=== PATIENT | female | born 1945 | race Caucasian/White ===

== ENCOUNTER 2018-05-18 00:29 | Emergency (ER) | payer OTHER ==
--- OUTSIDE RECORDS SUMMARY | 2018-05-18 00:31 | XMS REPORT ---
:1945 Author Organization [facility] Address [address] [place] [address] [address]. [address] [place] [address] Care Team Providers Name Role Phone IRENE SEGOVIA Unavailable Unavailable Problems This patient has no known problems. Allergies, Adverse Reactions, Alerts This patient has no known allergies or adverse reactions. Medications This patient has no known medications. Results Test Description Test Time Test Comments Text Results Atomic Results Result Comments POCT-GLUCOSE METER 2016-11-10 12:36:00 Test Item Value Reference Range Comments POC-GLUCOSE METER (BEAKER) (test 115 mg/dL 70-110 TESTED AT [address] xrut=7449) [facility] [address] POCT-GLUCOSE [id number] 08:07:00 Test Item Value Reference Range Comments POC-GLUCOSE METER (BEAKER) 131 mg/dL 70-110 TESTED AT [address] (test qifg=1000) [facility] [id number] POCT-GLUCOSE [id number] 19:50:00 Test Item Value Reference Range Comments POC-GLUCOSE METER (BEAKER) 134 mg/dL 70-110 TESTED AT [address] (test libz=3872) [facility] [address] POCT-GLUCOSE [id number] 17:02:00 Test Item Value Reference Range Comments POC-GLUCOSE METER (BEAKER) 137 mg/dL 70-110 TESTED AT [address] (test qfin=5411) [facility] [address] POCT-GLUCOSE [id number] 12:00:00 Test Item Value Reference Range Comments POC-GLUCOSE METER (BEAKER) 109 mg/dL 70-110 TESTED AT [address] (test pwuv=3732) [facility] [address] SEDIMENTATION [id number] 10:11:00 Test Item Value Reference Range Comments SEDIMENTATION RATE, ERYTHROCYTE (BEAKER) (test 19 mm/HR 0-40 dlga=670) HEMOGLOBIN [id number] 09:54:00 Test Item Value Reference Range Comments HEMOGLOBIN A1C (BEAKER) (test xnox=427) 6.6 % 4.3-6.1 POCT-GLUCOSE [id number] 08:44:00 Test Item Value Reference Range Comments POC-GLUCOSE METER (BEAKER) 93 mg/dL 70-110 TESTED AT [address] (test wyeu=0682) [place] [id number] POCT-GLUCOSE [id number] 06:19:00 Test Item Value Reference Range Comments POC-GLUCOSE METER (BEAKER) 104 mg/dL 70-110 TESTED AT [address] (test vmct=8637) [place] [id number] 05:48:00 Test Item Value Reference Range Comments THYROID STIMULATING HORMONE (BEAKER) (test 1.61 uIU/mL 0.35-4.94 gzvb=603) VITAMIN [id number] 05:48:00 Test Item Value Reference Range Comments VITAMIN B12 (BEAKER) (test vtiv=288) 537 pg/mL 213-816 LIPID [id number] 05:27:00 Test Item Value Reference Range Comments TRIGLYCERIDES (BEAKER) (test pehi=574) 69 mg/dL CHOLESTEROL (BEAKER) (test dxcm=844) 104 mg/dL HDL CHOLESTEROL (BEAKER) (test hurc=913) 44 mg/dL LDL CHOLESTEROL CALCULATED (BEAKER) (test 46 mg/dL hlia=641) Triglyceride Reference Range: Low Risk <150 Borderline 150- 199 High Risk 200-499 Very High Risk >=500Cholesterol Reference Range: Low Risk <200 Borderline 200-239 High Risk > 240HDL Cholesterol Reference Range: Low Risk >=60 High Risk <40LDL Cholesterol Reference Range: Optimal <100 Near Optimal 100-129 Borderline 130-159 High 160-189 Very High >=190 FastingBASIC METABOLIC [id number] 05:27:00 Test Item Value Reference Range Comments SODIUM (BEAKER) (test 140 meq/L 136-145 wack=461) POTASSIUM (BEAKER) (test 4.0 meq/L 3.5-5.1 haro=119) CHLORIDE (BEAKER) (test 108 meq/L 98-107 pklt=307) CO2 (BEAKER) (test 23 meq/L 22-29 xprl=692) BLOOD UREA NITROGEN 15 mg/dL 7-21 (BEAKER) (test pyzr=630) CREATININE (BEAKER) (test 0.71 mg/dL 0.57-1.25 hoxw=778) GLUCOSE RANDOM (BEAKER) 131 mg/dL 70-105 (test aapn=698) CALCIUM (BEAKER) (test 8.8 mg/dL 8.4-10.2 bauz=956) EGFR (BEAKER) (test 82 mL/min/1.73 sq m ESTIMATED GFR IS NOT jvgz=6029) ACCURATE CREATININE CLEARANCE IN PREDICTING GLOMERULAR FILTRATION RATE. ESTIMATED GFR IS NOT APPLICABLE FOR DIALYSIS PATIENTS. FastingCBC W/PLT COUNT & AUTO [id number] 05:16:00 Test Item Value Reference Range Comments WHITE BLOOD CELL COUNT (BEAKER) (test igat=222) 7.1 K/ L 4.0-10.0 RED BLOOD CELL COUNT (BEAKER) (test pozl=339) 3.96 M/ L 4.00-5.00 HEMOGLOBIN (BEAKER) (test rqxg=693) 11.1 GM/DL 12.0-15.0 HEMATOCRIT (BEAKER) (test rqbh=038) 33.7 % 36.0-45.0 MEAN CORPUSCULAR VOLUME (BEAKER) (test hnxw=426) 85.2 fL 82.0-99.0 MEAN CORPUSCULAR HEMOGLOBIN (BEAKER) (test 28.0 pg 27.0-33.0 tcdt=281) MEAN CORPUSCULAR HEMOGLOBIN CONC (BEAKER) (test 32.9 GM/DL 32.0-36.0 wyzb=295) RED CELL DISTRIBUTION WIDTH (BEAKER) (test 14.6 % 10.3-14.2 swfw=364) PLATELET COUNT (BEAKER) (test rtew=844) 221 K/CU MM 150-430 MEAN PLATELET VOLUME (BEAKER) (test hkqj=012) 8.3 fL 6.5-10.5 NUCLEATED RED BLOOD CELLS (BEAKER) (test 0 /100 WBC 0-0 dtjd=678) NEUTROPHILS RELATIVE PERCENT (BEAKER) (test 67 % kqsf=577) LYMPHOCYTES RELATIVE PERCENT (BEAKER) (test 23 % anjg=455) MONOCYTES RELATIVE PERCENT (BEAKER) (test 9 % ynjc=967) EOSINOPHILS RELATIVE PERCENT (BEAKER) (test 2 % cnvq=387) BASOPHILS RELATIVE PERCENT (BEAKER) (test 1 % jvvy=285) NEUTROPHILS ABSOLUTE COUNT (BEAKER) (test 4.73 K/ L 1.80-8.00 ysxu=799) LYMPHOCYTES ABSOLUTE COUNT (BEAKER) (test 1.60 K/ L 1.48-4.50 mqqw=985) MONOCYTES ABSOLUTE COUNT (BEAKER) (test 0.62 K/ L 0.00-1.30 alrw=346) EOSINOPHILS ABSOLUTE COUNT (BEAKER) (test 0.11 K/ L 0.00-0.50 fhfp=511) BASOPHILS ABSOLUTE COUNT (BEAKER) (test 0.04 K/ L 0.00-0.20 hwzp=665) 0.00
--- OUTSIDE RECORDS SUMMARY | 2018-05-18 00:31 | XMS REPORT | Clinical Summary ---
:1945 Author Organization [facility] Address [address] [place] [address] Phone Care Team Providers Name Role Phone Unavailable Primary Care Provider Unavailable Allergies No Known Allergies Current Medications Prescription Sig. Disp. Refills Start Date End Date Status metFORMIN (GLUCOPHAGE) Take 1,000 mg by Active 1000 MG tablet mouth 2 (two) times daily with breakfast and dinner. losartan (COZAAR) 25 MG Take 25 mg by mouth Active tablet daily. levothyroxine Take 75 mcg by mouth Active (SYNTHROID, LEVOTHROID) Every morning on an 75 MCG tablet empty stomach. cholecalciferol, vitamin Take 1,000 Units by Active D3, 1,000 unit capsule mouth daily. Active Problems Problem Noted Date CVA (cerebral vascular accident) (HCC) 2016 Social History Tobacco Use Types Packs/Day Years Used Date Never Smoker Sex Assigned at Date Recorded Not on file Last Filed Vital Signs Not on file Plan of Treatment Not on file Results Not on fileafter 05/17/2017
[2018-05-18] MEDS ORDERED: ASPIRIN 81 MG CHEWABLE TABLET ONE (01:11)
[2018-05-18] MEDS ORDERED: NA CHLORIDE 0.9% 1,000 ML ONE (01:12)
[2018-05-18 01:55] LABS: Protime INR 0.98
[2018-05-18 01:56] LABS: Absolute Lymphocytes (CBC) 1.8 K/uL (0.7-4.9); Absolute Monocytes 0.7 K/uL (0.1-1.3); Absolute Neutrophil 5.7 K/uL (1.8-8.0); Basophils % 0.8 % (0-1.3); Eosinophils % 1.6 % (0-4.4); Hematocrit 33.4 % (36.0-45.0); Lymphocytes % 21.6 % (15.3-44.8); MCH 27.8 pg (27.0-35.0); MCV 82.5 fL (80-100); MPV 9.2 fL (7.6-11.3); RBC Red Blood Cell Count 4.04 M/uL (3.86-4.86)
[2018-05-18 02:13] LABS: ALT/SGPT 30 U/L (12-78); AST/SGOT 22 U/L (15-37); Albumin 3.6 g/dL (3.4-5.0); Alkaline Phosphatase 71 U/L (45-117); BUN Blood Urea Nitrogen 12 mg/dL (7-18); Bicarbonate 24 mmol/L (21-32); Bilirubin Direct 0.1 mg/dL (0-0.2); Bilirubin Total 0.4 mg/dL (0.2-1.0); Glucose Level 117 mg/dL (74-106); Magnesium 2.1 mg/dL (1.8-2.4); NT PRO-BNP 143 pg/mL (<125); Potassium 3.6 mmol/L (3.5-5.1); Sodium Level 141 mmol/L (136-145); Troponin (Emerg Dept Use Only) < 0.02 ng/mL (0.0-0.045)
--- NOTE | 2018-05-18 02:27 | ER ---
Nurse's Notes [facility] Name: Erin Robledo Age: 72 yrs Sex: Female : 1945 Arrival Date: 05/18/2018 Time: 00:30 Bed 7 Private MD: Diagnosis: Pain left upper extremity ( Resolved ) Presentation: 05/18 00:49 Presenting complaint: Patient states: Left arm pain that began about 40 minutes ago; lp1 Denies any other symptoms, full ROM intact. Transition of care: patient was not received from another setting of care. Onset of symptoms was May 18, 2018 at 00:00. Risk Assessment: Do you want to hurt yourself or someone else? Patient reports no desire to harm self or others. Initial Sepsis Screen: Does the patient meet any 2 criteria? No. Patient's initial sepsis screen is negative. Does the patient have a suspected source of infection? No. Patient's initial sepsis screen is negative. Care prior to arrival: None. 00:49 Method Of Arrival: Ambulatory lp1 00:49 Acuity: COLTON 3 lp1 Historical: - Allergies: 00:52 No Known Allergies; lp1 - Home Meds: 00:52 metformin 1,000 mg Oral tab 1 tab 2 times per day [Active]; Synthroid 75 mcg Oral tab 1 lp1 tab once daily [Active]; losartan 25 mg Oral tab 1 tab once daily [Active]; atorvastatin 80 mg Oral tab 1 tab once daily [Active]; Caltrate 600 + D 600 mg (1,500 mg)-800 unit Oral chew twice a day [Active]; Vitamin D3 oral oral [Active]; Vitamin B-12 1,000 mcg Oral tab daily [Active]; magnesium oxide 250 mg Oral tab daily [Active]; zaleplon 5 mg oral cap nightly [Active]; - PMHx: 00:52 Anemia; Diabetes - NIDDM; High Cholesterol; Hypertension; Hypothyroidism; TIA; lp1 - PSHx: 00:52 ; Cholecystectomy; lp1 - Immunization history:: Adult Immunizations up to date. - Social history:: Smoking status: Patient/guardian denies using tobacco. - Ebola Screening: : No symptoms or risks identified at this time. Screenin:00 Abuse screen: Denies threats or abuse. Denies injuries from another. Nutritional aa1 screening: No deficits noted. Tuberculosis screening: No symptoms or risk factors identified. Fall Risk None identified. Assessment: 01:00 General: Appears in no apparent distress. comfortable, Behavior is calm, cooperative, aa1 appropriate for age. Pain: Complains of pain in left arm Quality of pain is described as aching, Pain began 1 hour ago. Is continuous. Neuro: Level of Consciousness is awake, alert, obeys commands, Oriented to person, place, time, situation, Academic Affairs Director are equal bilaterally Moves all extremities. Full function. Cardiovascular: Denies chest pain, palpitations, shortness of breath, Heart tones S1 S2 present Rhythm is regular. Respiratory: Airway is patent Respiratory effort is even, unlabored, Respiratory pattern is regular, symmetrical. GI: No signs and/or symptoms were reported involving the gastrointestinal system. : No signs and/or symptoms were reported regarding the genitourinary system. EENT: No signs and/or symptoms were reported regarding the EENT system. Derm: Skin is intact, is healthy with good turgor, Skin is pink, warm \T\ dry. Musculoskeletal: Circulation, motion, and sensation intact. Capillary refill < 3 seconds, Range of motion: intact in all extremities. 02:50 Reassessment: Patient appears in no apparent distress at this time. Patient is alert, aa1 oriented x 3, equal unlabored respirations, skin warm/dry/pink. Discussed d/c \T\ f/u instructions with pt \T\ daughter; denies questions or concerns at this time Patient states feeling better. Vital Signs: 00:52 BP 145 / 78; Pulse 85; Resp 18; Temp 97.9(O); Pulse Ox 99% on R/A; Weight 68.04 kg; lp1 Height 5 ft. 1 in. (154.94 cm); Pain 0/10; 02:53 BP 117 / 68; Pulse 65; Resp 16; Pulse Ox 96% on R/A; aa1 00:52 Body Mass Index 28.34 (68.04 kg, 154.94 cm) lp1 ED Course: 00:30 Patient arrived in ED. ds1 00:49 Triage completed. lp1 00:52 Arm band placed on left wrist. lp1 00:53 Patient has correct armband on for positive identification. Placed in gown. Bed in low lp1 position. Call light in reach. technology advisor on. Pulse ox on. NIBP on. 01:02 Arlet Oleary, RN is Primary Nurse. aa1 01:08 Nahum Calderon MD is Attending Physician. pkl 01:25 Inserted saline lock: 20 gauge in right antecubital area, using aseptic technique. ds4 Blood collected. 01:30 Patient moved to radiology via wheelchair. kw 01:30 X-ray completed. Patient tolerated procedure well. kw 01:30 Patient moved back from radiology. kw 01:32 XRAY Chest (1 view) In Process Unspecified. EDMS 01:32 C Spine Ap/Lat XRAY In Process Unspecified. EDMS 02:33 EKG done, by ED staff, reviewed by Nahum Calderon MD. ds4 02:45 IV discontinued, intact, bleeding controlled, No redness/swelling at site. Pressure ds4 dressing applied. 02:52 No provider procedures requiring assistance completed. aa1 Administered Medications: 01:03 CANCELLED (Duplicate Order): NS 0.9% 1000 ml IV at 125 ml/hr continuous aa1 01:11 Drug: Aspirin 162 mg Route: PO; aa1 02:10 Follow up: Response: No adverse reaction aa1 02:18 Drug: NS 0.9% 1000 ml Route: IV; Rate: 125 ml/hr; Site: right antecubital; aa1 02:50 Follow up: IV Status: Completed infusion aa1 Outcome: 02:27 Discharge ordered by . pkl 02:54 Discharged to home ambulatory, with family. aa1 02:54 Condition: good 02:54 Discharge instructions given to patient, Instructed on discharge instructions, follow up and referral plans. Demonstrated understanding of instructions, follow-up care. 02:54 Patient left the ED. aa1 Signatures: Dispatcher [employer] EDMS Arlet Oleary, RN RN aa1 Nahum Calderon MD MD pkl Sanford, Demi ds1 Mey Holliday Laura, RN RN lp1 Gabriel Cruz ds4
--- NOTE | 2018-05-18 02:27 | EDPHYS ---
Physician Documentation [facility] Name: Erin Robledo Age: 72 yrs Sex: Female : 1945 Arrival Date: 05/18/2018 Time: 00:30 Bed 7 Private MD: ED Physician Nahum Calderon HPI: 05/18 01:14 This 72 yrs old Female presents to ER via Ambulatory with complaints of Arm pkl Pain - L. 01:14 The patient or guardian complains of pain, that is acute. The complaints affect the pkl left hand and arm. Onset: The symptoms/episode began/occurred just prior to arrival, 1 hour(s) ago, and improved just prior to arrival. Associated signs and symptoms: The patient has no apparent associated signs or symptoms. Historical: - Allergies: 00:52 No Known Allergies; lp1 - Home Meds: 00:52 metformin 1,000 mg Oral tab 1 tab 2 times per day [Active]; Synthroid 75 mcg Oral tab 1 lp1 tab once daily [Active]; losartan 25 mg Oral tab 1 tab once daily [Active]; atorvastatin 80 mg Oral tab 1 tab once daily [Active]; Caltrate 600 + D 600 mg (1,500 mg)-800 unit Oral chew twice a day [Active]; Vitamin D3 oral oral [Active]; Vitamin B-12 1,000 mcg Oral tab daily [Active]; magnesium oxide 250 mg Oral tab daily [Active]; zaleplon 5 mg oral cap nightly [Active]; - PMHx: 00:52 Anemia; Diabetes - NIDDM; High Cholesterol; Hypertension; Hypothyroidism; TIA; lp1 - PSHx: 00:52 ; Cholecystectomy; lp1 - Immunization history:: Adult Immunizations up to date. - Social history:: Smoking status: Patient/guardian denies using tobacco. - Ebola Screening: : No symptoms or risks identified at this time. ROS: 01:14 Eyes: Negative for injury, pain, redness, and discharge, ENT: Negative for injury, pkl pain, and discharge, Neck: Negative for injury, pain, and swelling, Cardiovascular: Negative for chest pain, palpitations, and edema, Respiratory: Negative for shortness of breath, cough, wheezing, and pleuritic chest pain, Abdomen/GI: Negative for abdominal pain, nausea, vomiting, diarrhea, and constipation, Back: Negative for injury and pain, : Negative for injury, bleeding, discharge, and swelling, Skin: Negative for injury, rash, and discoloration, Neuro: Negative for headache, weakness, numbness, tingling, and seizure. 01:14 MS/extremity: Positive for pain, of the left hand and arm. Exam: 01:14 Head/Face: Normocephalic, atraumatic. Eyes: Pupils equal round and reactive to light, pkl extra-ocular motions intact. Lids and lashes normal. Conjunctiva and sclera are non-icteric and not injected. Cornea within normal limits. Periorbital areas with no swelling, redness, or edema. ENT: Nares patent. No nasal discharge, no septal abnormalities noted. Tympanic membranes are normal and external auditory canals are clear. Oropharynx with no redness, swelling, or masses, exudates, or evidence of obstruction, uvula midline. Mucous membranes moist. Neck: Trachea midline, no thyromegaly or masses palpated, and no cervical lymphadenopathy. Supple, full range of motion without nuchal rigidity, or vertebral point tenderness. No Meningismus. Chest/axilla: Normal chest wall appearance and motion. Nontender with no deformity. No lesions are appreciated. Cardiovascular: Regular rate and rhythm with a normal S1 and S2. No gallops, murmurs, or rubs. Normal PMI, no JVD. No pulse deficits. Respiratory: Lungs have equal breath sounds bilaterally, clear to auscultation and percussion. No rales, rhonchi or wheezes noted. No increased work of breathing, no retractions or nasal flaring. Abdomen/GI: Soft, non-tender, with normal bowel sounds. No distension or tympany. No guarding or rebound. No evidence of tenderness throughout. Back: No spinal tenderness. No costovertebral tenderness. Full range of motion. Skin: Warm, dry with normal turgor. Normal color with no rashes, no lesions, and no evidence of cellulitis. Neuro: Awake and alert, GCS 15, oriented to person, place, time, and situation. Cranial nerves II-XII grossly intact. Motor strength 5/5 in all extremities. Sensory grossly intact. Cerebellar exam normal. Normal gait. 01:14 Musculoskeletal/extremity: Extremities: grossly normal except: noted in the left hand and arm: pain has resolved. Vital Signs: 00:52 BP 145 / 78; Pulse 85; Resp 18; Temp 97.9(O); Pulse Ox 99% on R/A; Weight 68.04 kg; lp1 Height 5 ft. 1 in. (154.94 cm); Pain 0/10; 02:53 BP 117 / 68; Pulse 65; Resp 16; Pulse Ox 96% on R/A; aa1 00:52 Body Mass Index 28.34 (68.04 kg, 154.94 cm) lp1 MDM: 00:51 Patient medically screened. [facility] 02:26 Data reviewed: vital signs, nurses notes, lab test result(s), EKG, radiologic studies, pkl plain films. 02:27 Patient medically screened. pkl 05/18 00:52 Order name: Basic Metabolic Panel; Complete Time: 02:23 b[place]on 05/18 00:52 Order name: CBC with Diff; Complete Time: 02:23 b[place]on 05/18 00:52 Order name: LFT's; Complete Time: 02:23 [place]on 05/18 00:52 Order name: Magnesium; Complete Time: 02:23 [facility] 05/18 00:52 Order name: NT PRO-BNP; Complete Time: 02:23 [place] 05/18 00:52 Order name: PT-INR; Complete Time: 02:23 [facility] 05/18 00:52 Order name: Troponin (emerg Dept Use Only); Complete Time: 02:23 [facility] 05/18 00:52 Order name: XRAY Chest (1 view) [facility] 05/18 00:52 Order name: EKG; Complete Time: 00:53 [facility] 05/18 00:52 Order name: Cardiac monitoring; Complete Time: 01:03 [facility] 05/18 00:52 Order name: C Spine Ap/Lat XRAY [facility] 05/18 00:52 Order name: EKG - Nurse/Tech; Complete Time: 02:33 [facility] 05/18 00:52 Order name: IV Saline Lock; Complete Time: 01:25 [place] 05/18 00:52 Order name: Labs collected and sent; Complete Time: 01:25 [facility] 05/18 00:52 Order name: O2 Per Protocol; Complete Time: 01:03 [facility] 05/18 00:52 Order name: O2 Sat Monitoring; Complete Time: 01:03 bryon Administered Medications: 01:03 CANCELLED (Duplicate Order): NS 0.9% 1000 ml IV at 125 ml/hr continuous aa1 01:11 Drug: Aspirin 162 mg Route: PO; aa1 02:10 Follow up: Response: No adverse reaction aa1 02:18 Drug: NS 0.9% 1000 ml Route: IV; Rate: 125 ml/hr; Site: right antecubital; aa1 02:50 Follow up: IV Status: Completed infusion aa1 Disposition: 05/18/18 02:27 Discharged to Home. Impression: Pain left upper extremity ( Resolved ). - Condition is Stable. - Medication Reconciliation Form, Thank You Letter, Antibiotic Education, Prescription Opioid Use form. - Follow up: Private Physician; When: 2 - 3 days; Reason: Re-evaluation by your physician. - Problem is new. - Symptoms are resolved. Signatures: Dispatcher [employer] EDArlet Hodges RN RN aa1 Armen Mcdonnell MD MD cha Lam, Pin, MD MD pkSara Dior RN RN lp1 Corrections: (The following items were deleted from the chart) 01:03 00:52 NS 0.9% 1000 ml IV at 125 ml/hr continuous ordered. bryon aa1 02:54 02:27 05/18/2018 02:27 Discharged to Home. Impression: Pain left upper extremity ( aa1 Resolved ). Condition is Stable. Forms are Medication Reconciliation Form, Thank You Letter, Antibiotic Education, Prescription Opioid Use. Follow up: Private Physician; When: 2 - 3 days; Reason: Re-evaluation by your physician. Problem is new. Symptoms are resolved. pkl
[2018-05-18 02:59] VITALS: TEMP 97.9
[2018-05-18 03:00] VITALS: BP 117/68; O2SAT 96
--- NOTE | 2018-05-18 07:33 | EKG ---
Test Date: 2018-05-18 Test Time: 02:28:21 Network Professional: STEPHON MEASUREMENT RESULTS: Intervals: Rate: 59 MA: 224 QRSD: 94 QT: 434 QTc: 429 [place]: P: 37 MA: 224 QRS: 25 T: 7 INTERPRETIVE STATEMENTS: Sinus bradycardia with 1st degree AV block Otherwise normal ECG Compared to ECG 10/26/1997 21:38:00 First degree AV block now present Electronically Signed On 05-18-18 07:32:32 CDT by Carmine Griffith
--- NOTE | 2018-05-18 09:18 | RAD REPORT ---
EXAM DESCRIPTION: RAD - Chest Single View - 05/18/2018 1:35 am CLINICAL HISTORY: Cough, shortness of breath COMPARISON: July 2017 TECHNIQUE: AP portable chest image was obtained 0119 hours . FINDINGS: No acute infiltrates seen. Interstitial markings are mildly prominent but stable. Small 5- 6 mm nodule left mid lung field near the hilum is unchanged from July 2017. This could be a small granuloma or even possibly a vessel seen on and. Vague nodular density is seen in the upper right guillermo ng field between the posterior fifth and sixth ribs. This is also in proximity to a cardiac lead plac ed on the chest. No failure or volume overload. Heart and vasculature are normal. No measurable pleural effusion and no pneumothorax. No acute bony abnormality seen. No acute aortic findings suspected. IMPRESSION: No failure, infiltrate or acute cardiopulmonary finding. Vague nodular focus upper right lung field may simply be summation artifact. A follow-up two-view exa mination could be performed after removal of the cardiac leads. Otherwise, repeat chest film could be performed in 3-4 months.
--- NOTE | 2018-05-18 09:20 | RAD REPORT ---
EXAM DESCRIPTION: RAD - C Spine Ap/Lat - 05/18/2018 1:38 am CLINICAL HISTORY: Neck pain, radiculopathy COMPARISON: None. FINDINGS: Cervical bodies are normal in height and alignment. No fracture or acute bony process seen . Significant C5-6 disc space narrowing with significant posterior endplate spurring at this level en croaching into the central canal. There is no prevertebral soft tissue thickening or other suspicious soft tissue finding. IMPRESSION: No fracture or acute cervical spine finding. Significant C5-6 degenerative disc disease with endplate spurring encroaching into the central canal. Follow-up MR imaging could be performed to assess for any herniation component, cord flattening or sp inal stenosis.
== END 2018-05-18 02:54 | disposition home or self-care (01) ==
LOC: ER 00:29
DX: M79.622 Pain in left upper arm (principal); I10 Essential (primary) hypertension; E11.9 Type 2 diabetes mellitus without complications; E03.9 Hypothyroidism, unspecified; E78.00 Pure hypercholesterolemia, unspecified
CPT/HCPCS: 36415; 71045; 72040; 80048; 80076; 83735; 83880; 84484; 85025; 85610; 93005; 96360; 99284; J7030

== ENCOUNTER 2022-08-16 18:21 | Emergency (ER) | payer OTHER ==
--- OUTSIDE RECORDS SUMMARY | 2022-08-16 18:32 | XMS REPORT | Continuity of Care Document ---
:1945 Author Organization [facility] t Address [address] [place] [address] Care Team Providers Name Role Phone NELIDA BEJARANO Primary Care Physician Unavailable MILO REZA Attending Clinician Unavailable SAM OLIVARES Attending Clinician Unavailable NELIDA BEJARANO Attending Clinician Unavailable Nelida Dolan Attending Clinician Rosendo Hampton Attending Clinician Unavailable Doctor Unassigned, [place] Attending Clinician Unavailable Esdras Reese Attending Clinician ANIA_RAFFY_Deloris Attending Clinician Unavailable ESDRAS MARTINEZ Attending Clinician Unavailable JACOBY VALLE Attending Clinician Unavailable Jacoby Valle MD Attending Clinician Raymond Dumont MD Attending Clinician Le Francis Attending Clinician [phone] Le Sanchez Attending Clinician Erika Holley Attending Clinician ERIKA JOHNSON Attending Clinician Unavailable Ana Barillas Attending Clinician [phone] JULIA, WONDIFUL A Attending Clinician Unavailable Taryn RN, Shi Attending Clinician Unavailable Anup RN, Edmund Attending Clinician Unavailable Only, Ang Db Test Attending Clinician Unavailable Luci ROAD ENGINEER, Greg Attending Clinician GREG VARELA Attending Clinician Unavailable Lab, Adc Fam Pob I Attending Clinician Unavailable FUAD, DAVE Attending Clinician Unavailable John RILEY, Anabell Attending Clinician ANABELL COOPER Attending Clinician Unavailable [address] RO[address] ENGINEER, Keira A Attending Clinician GRAMM, KEIRA A Attending Clinician Unavailable Fuad RILEY, Dave Attending Clinician Terence Hogan DO Attending Clinician Librado RILEY, Milo Mejias Attending Clinician Javon Silver CRNA Attending Clinician Carin Grubbs MD Attending Clinician Only, Adc Test Attending Clinician Unavailable 1, Adc Lab Attending Clinician Unavailable JULIETTEIRENE Starkey Attending Clinician Unavailable MILO REZA Admitting Clinician Unavailable NELIDA BEJARANO Admitting Clinician Unavailable _AIMEEPR_Deloris Admitting Clinician Unavailable JACOBY VALLE Admitting Clinician Unavailable Milo Reza MD Admitting Clinician IRENE SEGOVIA Admitting Clinician Unavailable Payers Payer Name Policy Type Policy Number Effective Date Expiration Date [place] is[place] [employer] MEDICARE ERS [id number] 2018 00:00:00 [facility] [id number] 2020 [facility] 00:00:[address] [facility] [id number] (MEDICARE REPLACEMENT/ADVANTA GE - PPO) Problems Condition Condition Condition Status Onset Resolution Last Treating Co mments Source Name Details Category Date Date Treatment Clinician Date Dizziness Dizziness Disease Active 2021-08 Uni vers 09 ity of 00:00: [place] 00 [facility] Branch Renal Renal Disease Active Univers cysts, cysts, 3-27 [place] of acquired[place], [place] Fatty Fatty Disease Active 2021-0 Univers liver liver 3-27 ity of 00:00: [place] 00 [facility] Branch Calcificat Calcificat Disease Active Overview : Univers ions and ions and 3 Formattin ity of cysts of cysts of 00:00: g of this [place] as spleen spleen 00 note Medical might be Branch different from the original. 11/03/20: Referred to General surgery. Abnormal Abnormal Disease Active Unive rs LFTs LFTs 3-17 ity of (liver (liver 00:00: [place] function function 00 Medica l tests) tests) Branch Anemia Anemia Disease Active Univers 3-09 ity of 00:00: [place] 00 Medical Branch PFO PFO Disease Active Univers (patent (patent 10-16 ity of foramen foramen 00:00: [place] ovale) ovale) 00 Medical Branch Presence Presence Disease Active Unive rs of pessary of pessary 3 it y of 00:00: [place] 00 Medical Branch Decreased Decreased Disease Active Uni vers hearing hearing 3 ity of 00:00: [place] 00 [facility] Branch Heart Heart Disease Active Univers murmur murmur 309 ity of 00:00: [place] 00 [facility] CVA CVA Disease Active [facility] (cerebral (cerebral 4-02 [place] [facility] vascular vascular 00:00: Medica l accident) accident) 00 Cent er Osteoporos Osteoporos Disease Active U nivers is is 7-11 ity of 00:00: [place] 00 [facility] Hand Hand Disease Active Univers arthritis arthritis 6-14 ity of 00:00: [place] 00 [facility] Branch Diabetes Diabetes Disease Active Unive rs mellitus mellitus ity of [facility] Hyperlipid Hyperlipid Disease Active U nivers emia emia ity of [facility] Hypertensi Hypertensi Disease Active U nivers on on ity of [facility] Hypothyroi Hypothyroi Disease Active U nivers dism dism ity of [facility] Antral Antral Disease Active Overview: Univer s gastritis gastritis Formattin i ty of g of this [place] note Medical might be Branch different from the original. + anti-michael etal cell Abs Psoriasis Psoriasis Disease Active Uni vers ity of [facility] Allergies, Adverse Reactions, Alerts Allergy Allergy Status Severity Reaction(s) Onset Inactive Treating Comm ents Source Name Type Date Date Clinician NO KNOWN Drug Active Univers ALLERGIE Class ity of S [place] [facility] [place] Social History Social Habit Start Date Stop Date Quantity Comments Source Exposure to 2022-07-08 2022-07-18 Not sure University of SARS-CoV-2 00:00:00 12:50:00 [place] Medical (event) Branch Tobacco use and 2022-02-25 2022-02-25 Smokeless tobacco Un iversity of exposure 00:00:00 00:00:00 non-user [facility] Branch Tobacco Comment 2022-02-25 2022-02-25 quit in 1989, Univer sity of 00:00:00 00:00:00 started at age [place] Medi radha 18yo, smoked on Branch avg 1ppd Alcohol intake [address] [facility] [facility] es 00:00:00 00:00:00 [facility] Center Sex Assigned At [address] [facility] [address] [facility] kes 00:00:00 00:00:00 [facility] Center Smoking Status Start Date Stop Date Source Former Smoker [facility] Never smoker [facility] Medications Ordered Filled Start Stop Current Ordering Indication Dosage Frequency Signature Comments Components Source Medication Medication Date Date Medication? Clinician (SIG) Name Name levothyroxi 2021-08 Yes [id number] 75ug Take 1 Univers ne 2-09 tablet by ity of (SYNTHROID) 00:00: mouth [place] 75 mcg 00 every Medical tablet morning. Branch traZODone 2021-08 Yes [id number] 50mg Take 1 U nivers 50 mg 2-09 tablet by ity of tablet 00:00: mouth at [place] 00 bedtime as Medical needed for Branch Insomnia. levothyroxi 2021-08 Yes [id number] 75ug Take 1 Univers ne 2-09 tablet by ity of (SYNTHROID) 00:00: mouth [place] 75 mcg 00 every Medical tablet morning. Branch traZODone 2021-08 Yes [id number] 50mg Take 1 U nivers 50 mg 2-09 tablet by ity of tablet 00:00: mouth at [place] 00 bedtime as Medical needed for Branch Insomnia. levothyroxi 2021-08 Yes [id number] 75ug Take 1 Univers ne 2-09 tablet by ity of (SYNTHROID) 00:00: mouth [place] 75 mcg 00 every Medical tablet morning. Branch traZODone 2021-08 Yes [id number] 50mg Take 1 U nivers 50 mg 2-09 tablet by ity of tablet 00:00: mouth at [place] 00 bedtime as Medical needed for Branch Insomnia. levothyroxi 2021-08 Yes [id number] 75ug Take 1 Univers ne 2-09 tablet by ity of (SYNTHROID) 00:00: mouth [place] 75 mcg 00 every Medical tablet morning. Branch traZODone 2021-08 Yes [id number] 50mg Take 1 U nivers 50 mg 2-09 tablet by ity of tablet 00:00: mouth at [place] 00 bedtime as Medical needed for Branch Insomnia. levothyroxi 2021-08 Yes [id number] 75ug Take 1 Univers ne 2-09 tablet by ity of (SYNTHROID) 00:00: mouth [place] 75 mcg 00 every Medical tablet morning. Branch traZODone 2021-08 Yes [id number] 50mg Take 1 U nivers 50 mg 2-09 tablet by ity of tablet 00:00: mouth at [place] 00 bedtime as Medical needed for Branch Insomnia. levothyroxi 2021-08 Yes [id number] 75ug Take 1 Univers ne 1-22 tablet by ity of (LEVOXYL) 00:00: mouth [place] 75 mcg 00 every Medical tablet morning. Branch levothyroxi 2021-08- No [id number] 75ug Take 1 Univers ne 1-22 12-09 tablet by ity of (LEVOXYL) 00:00: 00:00 mouth [place] 75 mcg 00 :00 every Medical tablet morning. Branch levothyroxi 2021-08- No [id number] 75ug Take 1 Univers ne 1-22 12-09 tablet by ity of (LEVOXYL) 00:00: 00:00 mouth [place] 75 mcg 00 :00 every Medical tablet morning. Branch levothyroxi 2021-08- No [id number] 75ug Take 1 Univers ne 1-22 12-09 tablet by ity of (LEVOXYL) 00:00: 00:00 mouth [place] 75 mcg 00 :00 every Medical tablet morning. Branch candesartan 2021-08 Yes [id number] TAKE ONE Univers 4 mg tablet 0-24 TABLET BY ity of 00:00: MOUTH [place] 00 DAILY DOSE Medical DECREASE Branch candesartan 2021-08 Yes [id number] TAKE ONE Univers 4 mg tablet 0-24 TABLET BY ity of 00:00: MOUTH [place] 00 DAILY DOSE Medical DECREASE Branch candesartan 2021- Yes [id number] TAKE ONE Univers 4 mg tablet 0-24 TABLET BY ity of 00:00: MOUTH [place] 00 DAILY DOSE Medical DECREASE Branch candesartan 2-1 Yes [id number] TAKE ONE Univers 4 mg tablet 0-24 TABLET BY ity of 00:00: MOUTH [place] 00 DAILY DOSE Medical DECREASE Branch candesartan 2- Yes [id number] TAKE ONE Univers 4 mg tablet 0-24 TABLET BY ity of 00:00: MOUTH [place] 00 DAILY DOSE Medical DECREASE Branch candesartan 2021- Yes [id number] TAKE ONE Univers 4 mg tablet 0-24 TABLET BY ity of 00:00: MOUTH [place] 00 DAILY DOSE Medical DECREASE Branch candesartan 2021- Yes [id number] TAKE ONE Univers 4 mg tablet 0-24 TABLET BY ity of 00:00: MOUTH [place] 00 DAILY DOSE Medical DECREASE Branch candesartan 2021- Yes [id number] TAKE ONE Univers 4 mg tablet 0-24 TABLET BY ity of 00:00: MOUTH [place] 00 DAILY DOSE Medical DECREASE Branch candesartan 2021- Yes [id number] TAKE ONE Univers 4 mg tablet 0-24 TABLET BY ity of 00:00: MOUTH [place] 00 DAILY DOSE Medical DECREASE Branch candesartan 2- Yes [id number] TAKE ONE Univers 4 mg tablet 0-24 TABLET BY ity of 00:00: MOUTH [place] 00 DAILY DOSE Medical DECREASE Branch candesartan 2-1 Yes [id number] TAKE ONE Univers 4 mg tablet 0-24 TABLET BY ity of 00:00: MOUTH [place] 00 DAILY DOSE Medical DECREASE Branch candesartan 2-1 Yes [id number] TAKE ONE Univers 4 mg tablet 0-24 TABLET BY ity of 00:00: MOUTH [place] 00 DAILY DOSE Medical DECREASE Branch candesartan 2-1 Yes [id number] TAKE ONE Univers 4 mg tablet 0-24 TABLET BY ity of 00:00: MOUTH [place] 00 DAILY DOSE Medical DECREASE Branch candesartan 2-1 Yes [id number] TAKE ONE Univers 4 mg tablet 0-24 TABLET BY ity of 00:00: MOUTH [place] 00 DAILY DOSE Medical DECREASE Branch JANUVIA 100 2021-0 Yes [id number] TAKE ONE Univers mg tablet 8-22 TABLET BY ity o 00:00: MOUTH [place] DAILY Medical Branch JANUVIA 100 2-0 Yes [id number] TAKE ONE Univers mg tablet 8-22 TABLET BY ity o f 00:00: MOUTH [place] DAILY Medical Branch JANUVIA 100 2-0 Yes [id number] TAKE ONE Univers mg tablet 8-22 TABLET BY ity o f 00:00: MOUTH [place] DAILY Medical Branch JANUVIA 100 2-0 Yes [id number] TAKE ONE Univers mg tablet 8-22 TABLET BY ity o f 00:00: MOUTH [place] DAILY Medical Branch JANUVIA 100 2021-0 Yes [id number] TAKE ONE Univers mg tablet 8-22 TABLET BY ity o f 00:00: MOUTH [place] DAILY Medical Branch JANUVIA 100 2021-0 Yes [id number] TAKE ONE Univers mg tablet 8-22 TABLET BY ity o f 00:00: MOUTH [place] DAILY Medical Branch JANUVIA 100 2021-0 Yes [id number] TAKE ONE Univers mg tablet 8-22 TABLET BY ity o f 00:00: MOUTH [place] DAILY Medical Branch JANUVIA 100 2021-0 Yes [id number] TAKE ONE Univers mg tablet 8-22 TABLET BY ity o f 00:00: MOUTH [place] DAILY Medical Branch JANUVIA 100 2021-0 Yes [id number] TAKE ONE Univers mg tablet 8-22 TABLET BY ity o f 00:00: MOUTH [place] DAILY Medical Branch JANUVIA 100 2021-0 Yes [id number] TAKE ONE Univers mg tablet 8-22 TABLET BY ity o f 00:00: MOUTH [place] DAILY Medical Branch JANUVIA 100 2-0 Yes [id number] TAKE ONE Univers mg tablet 8-22 TABLET BY ity o f 00:00: MOUTH [place] DAILY Medical Branch JANUVIA 100 2-0 Yes [id number] TAKE ONE Univers mg tablet 8-22 TABLET BY ity o f 00:00: MOUTH [place] DAILY Medical Branch JANUVIA 100 2-0 Yes [id number] TAKE ONE Univers mg tablet 8-22 TABLET BY ity o f 00:00: MOUTH [place] DAILY Medical Branch JANUVIA 100 2-0 Yes [id number] TAKE ONE Univers mg tablet 8-22 TABLET BY ity o f 00:00: MOUTH [place] DAILY Medical Branch JANUVIA 100 2021-0 Yes [id number] TAKE ONE Univers mg tablet 8-22 TABLET BY ity o f 00:00: MOUTH [place] 00 DAILY Medical Branch JANUVIA 100 2021-0 Yes [id number] TAKE ONE Univers mg tablet 8-22 TABLET BY ity o f 00:00: MOUTH [place] 00 DAILY Medical Branch CANDESARTAN 2-0 Yes [id number] TAKE ONE Univers 4 mg tablet 7-21 TABLET BY ity of 00:00: MOUTH [place] 00 DAILY DOSE Medical DECREASE Branch CANDESARTAN 2-0 Yes [id number] TAKE ONE Univers 4 mg tablet 7-21 TABLET BY ity of 00:00: MOUTH [place] 00 DAILY DOSE Medical DECREASE Branch CANDESARTAN 2-0 Yes [id number] TAKE ONE Univers 4 mg tablet 7-21 TABLET BY ity of 00:00: MOUTH [place] 00 DAILY DOSE Medical DECREASE Branch CANDESARTAN 2-0 Yes [id number] TAKE ONE Univers 4 mg tablet 7-21 TABLET BY ity of 00:00: MOUTH [place] 00 DAILY DOSE Medical DECREASE Branch CANDESARTAN 2021-0 2- No [id number] TAKE ONE Univers 4 mg tablet 7-21 10-24 TABLET BY it y of 00:00: 00:00 MOUTH [place] 00 :00 DAILY DOSE Medical DECREASE Branch PROBIOTIC 2021-0 2021- No Take by Univ ers ORAL 02-25- mouth ity of 13:38: 00:00 daily. [place] 59 :00 Medical Branch COLACE ORAL 2021-0 2021- No Take by Un rishabh 02-25- mouth ity of 13:38: 00:00 daily. [place] 58 :00 Medical Branch pravastatin 2021-0 Yes [id number] 5mg Take 0.5 Univers 10 mg 7-19 tablets by ity of tablet 00:00: mouth at [place] [address] bedtime. Medical Branch pravastatin 2-0 Yes [id number] 5mg Take 0.5 Univers 10 mg 7-19 tablets by ity of tablet 00:00: mouth at [place] 00 bedtime. Medical Branch pravastatin 2-0 Yes [id number] 5mg Take 0.5 Univers 10 mg 7-19 tablets by ity of tablet 00:00: mouth at [place] [address] bedtime. Medical Branch pravastatin 2-0 Yes [id number] 5mg Take 0.5 Univers 10 mg 7-19 tablets by ity of tablet 00:00: mouth at [place] [address] bedtime. Medical Branch pravastatin 2021-0 Yes [id number] 5mg Take 0.5 Univers 10 mg 7-19 tablets by ity of tablet 00:00: mouth at [place] [address] bedtime. Medical Branch pravastatin 2021-0 Yes [id number] 5mg Take 0.5 Univers 10 mg 7-19 tablets by ity of tablet 00:00: mouth at [place] [address] bedtime. [facility] Branch pravastatin 2021-0 Yes [id number] 5mg Take 0.5 Univers 10 mg 7-19 tablets by ity of tablet 00:00: mouth at [place] [address] bedtime. Medical Branch pravastatin 2021-0 Yes [id number] 5mg Take 0.5 Univers 10 mg 7-19 tablets by ity of tablet 00:00: mouth at [place] [address] bedtime. [facility] Branch pravastatin 2021-0 Yes [id number] 5mg Take 0.5 Univers 10 mg 7-19 tablets by ity of tablet 00:00: mouth at [place] [address] bedtime. [facility] Branch pravastatin 2021-0 Yes [id number] 5mg Take 0.5 Univers 10 mg 7-19 tablets by ity of tablet 00:00: mouth at [place] [address] bedtime. [facility] Branch pravastatin 2021-0 Yes [id number] 5mg Take 0.5 Univers 10 mg 7-19 tablets by ity of tablet 00:00: mouth at [place] [address] bedtime. [facility] Branch pravastatin 2021-0 Yes [id number] 5mg Take 0.5 Univers 10 mg 7-19 tablets by ity of tablet 00:00: mouth at [place] [address] bedtime. Medical Branch pravastatin 2021-0 Yes [id number] 5mg Take 0.5 Univers 10 mg 7-19 tablets by ity of tablet 00:00: mouth at [place] [address] bedtime. Medical Branch pravastatin 2021-0 Yes [id number] 5mg Take 0.5 Univers 10 mg 7-19 tablets by ity of tablet 00:00: mouth at [place] [address] bedtime. [facility] Branch pravastatin 2021-0 Yes [id number] 5mg Take 0.5 Univers 10 mg 7-19 tablets by ity of tablet 00:00: mouth at [place] [address] bedtime. [facility] Branch pravastatin 2021-0 Yes [id number] 5mg Take 0.5 Univers 10 mg 7-19 tablets by ity of tablet 00:00: mouth at [place] 00 bedtime. Medical Branch pravastatin 2021-0 Yes [id number] 5mg Take 0.5 Univers 10 mg 7-19 tablets by ity of tablet 00:00: mouth at [place] 00 bedtime. Medical Branch pravastatin 2021-0 Yes [id number] 5mg Take 0.5 Univers 10 mg 7-19 tablets by ity of tablet 00:00: mouth at [place] 00 bedtime. Medical Branch pravastatin 2021-0 Yes [id number] 5mg Take 0.5 Univers 10 mg 7-19 tablets by ity of tablet 00:00: mouth at [place] 00 bedtime. Medical Branch TURMERIC 0 Yes Take by Univer s ORAL 7-11 mouth. ity of 09:14: [place] [address] Medical Branch TURMERIC 0 Yes Take by Univer s ORAL 7-11 mouth. ity of 09:14: [place] [address] Medical Branch TURMERIC 0 Yes Take by Univer s ORAL 7-11 mouth. ity of 09:14: [place] [address] Medical Branch TURMERIC 0 Yes Take by Univer s ORAL 7-11 mouth. ity of 09:14: [place] [address] Medical Branch TURMERIC Yes Take by Univer s ORAL 7-11 mouth. ity of 09:14: [place] [address] Medical Branch [facility] Take by Univer s ORAL 7-11 mouth. ity of 09:14: [place] [address] Medical Branch TURMERIC 0 Yes Take by Univer s ORAL 7-11 mouth. ity of 09:14: [place] [address] Medical Branch TURMERIC 0 Yes Take by Univer s ORAL 7-11 mouth. ity of 09:14: [place] [address] Medical Branch TURMERIC 0 Yes Take by Univer s ORAL 7-11 mouth. ity of 09:14: [place] [address] Medical Branch TURMERIC 0 Yes Take by Univer s ORAL 7-11 mouth. ity of 09:14: [place] [address] Medical Branch TURMERIC 0 Yes Take by Univer s ORAL 7-11 mouth. ity of 09:14: [place] [address] Medical Branch TURMERIC 0 Yes Take by Univer s ORAL 7-11 mouth. ity of 09:14: [place] [address] Medical Branch TURMERIC 0 Yes Take by Univer s ORAL 7-11 mouth. ity of 09:14: [place] [address] Medical Branch TURMERIC 0 Yes Take by Univer s ORAL 7-11 mouth. ity of 09:14: [place] [address] Medical Branch TURMERIC 0 Yes Take by Univer s ORAL 7-11 mouth. ity of 09:14: [place] [address] Medical Branch TURMERIC 0 Yes Take by Univer s ORAL 7-11 mouth. ity of 09:14: [place] [address] Medical Branch TURMERIC Yes Take by Univer s ORAL 7-11 mouth. ity of 09:14: [place] [address] Medical Branch TURMERIC Yes Take by Univer s ORAL 7-11 mouth. ity of 09:14: [place] [address] Medical Branch TURMERIC Yes Take by Univer s ORAL 7-11 mouth. ity of 09:14: [place] [address] Medical Branch LEVOXYL 75 2021-0 Yes [id number] TAKE ONE Univers mcg tablet 5-18 TABLET BY ity of 00:00: MOUTH [place] 00 EVERY Medical MORNING Branch LEVOXYL 75 202-0 Yes [id number] TAKE ONE Univers mcg tablet 5-18 TABLET BY ity of 00:00: MOUTH [place] 00 EVERY Medical MORNING Branch LEVOXYL 75 202-0 Yes [id number] TAKE ONE Univers mcg tablet 5-18 TABLET BY ity of 00:00: MOUTH [place] 00 EVERY Medical MORNING Branch LEVOXYL 75 2022-0 Yes [id number] TAKE ONE Univers mcg tablet 5-18 TABLET BY ity of 00:00: MOUTH [place] 00 EVERY Medical MORNING Branch LEVOXYL 75 2022-0 Yes [id number] TAKE ONE Univers mcg tablet 5-18 TABLET BY ity of 00:00: MOUTH [place] 00 EVERY Medical MORNING Branch LEVOXYL 75 2022-0 Yes [id number] TAKE ONE Univers mcg tablet 5-18 TABLET BY ity of 00:00: MOUTH [place] 00 EVERY Medical MORNING Branch LEVOXYL 75 2022-0 Yes [id number] TAKE ONE Univers mcg tablet 5-18 TABLET BY ity of 00:00: MOUTH [place] 00 EVERY Medical MORNING Branch LEVOXYL 75 202-0 Yes [id number] TAKE ONE Univers mcg tablet 5-18 TABLET BY ity of 00:00: MOUTH [place] 00 EVERY Medical MORNING Branch LEVOXYL 75 2021-0 Yes [id number] TAKE ONE Univers mcg tablet 5-18 TABLET BY ity of 00:00: MOUTH [place] 00 EVERY Medical MORNING Branch LEVOXYL 75 2021-0 Yes [id number] TAKE ONE Univers mcg tablet 5-18 TABLET BY ity of 00:00: MOUTH [place] 00 EVERY Medical MORNING Branch LEVOXYL 75 2021-0 Yes [id number] TAKE ONE Univers mcg tablet 5-18 TABLET BY ity of 00:00: MOUTH [place] 00 EVERY Medical MORNING Branch LEVOXYL 75 2021-0 Yes [id number] TAKE ONE Univers mcg tablet 5-18 TABLET BY ity of 00:00: MOUTH [place] 00 EVERY Medical MORNING Branch LEVOXYL 75 2021-0 Yes [id number] TAKE ONE Univers mcg tablet 5-18 TABLET BY ity of 00:00: MOUTH [place] 00 EVERY Medical MORNING Branch LEVOXYL 75 2021-0 2021- No [id number] TAKE ONE Univers mcg tablet 5-18 11-21 TABLET BY ity of 00:00: 00:00 MOUTH [place] 00 :00 EVERY Medical MORNING Branch SITagliptin 0 Yes [id number] 100mg Take 1 Univers (JANUVIA) 2-10 tablet by ity o f 100 mg 00:00: mouth [place] tablet 00 daily. Medical Branch SITagliptin Yes [id number] 100mg Take 1 Univers (JANUVIA) 2-10 tablet by ity o f 100 mg 00:00: mouth [place] tablet 00 daily. Medical Branch SITagliptin Yes [id number] 100mg Take 1 Univers (JANUVIA) 2-10 tablet by ity o f 100 mg 00:00: mouth [place] tablet 00 daily. Medical Branch SITagliptin 0 2021- No [id number] 100mg Take 1 Univers (JANUVIA) 2-10 08-22 tablet by ity of 100 mg 00:00: 00:00 mouth [place] tablet 00 :00 daily. Medical Branch Lancets Yes [id number] Check Univ ers (ACCU-CHEK 1-10 glucose ity of FASTCLIX 00:00: TID; [place] LANCET 00 ICD-10 Medical DRUM) Misc code E11.9 [facility] blood sugar Yes [id number] Check Univers diagnostic 1-10 glucose ity of (ACCU-CHEK 00:00: TID; [place] GUIDE TEST 00 ICD-10 Medical STRIPS) code E11.9 Branch strip Lancets Yes [id number] Check Univ ers (ACCU-CHEK 1-10 glucose ity of FASTCLIX 00:00: TID; [place] LANCET 00 ICD-10 Medical DRUM) Misc code E11.9 [facility] blood sugar Yes [id number] Check Univers diagnostic 1-10 glucose ity of (ACCU-CHEK 00:00: TID; [place] GUIDE TEST 00 ICD-10 Medical STRIPS) code E11.9 Branch strip Lancets Yes [id number] Check Univ ers (ACCU-CHEK 1-10 glucose ity of FASTCLIX 00:00: TID; [place] LANCET 00 ICD-10 Medical DRUM) Misc code E11.9 [facility] blood sugar Yes [id number] Check Univers diagnostic 1-10 glucose ity of (ACCU-CHEK 00:00: TID; [place] GUIDE TEST 00 ICD-10 Medical STRIPS) code E11.9 Branch strip Lancets Yes [id number] Check Univ ers (ACCU-CHEK 1-10 glucose ity of FASTCLIX 00:00: TID; [place] LANCET 00 ICD-10 Medical DRUM) Misc code E11.9 [facility] blood sugar Yes [id number] Check Univers diagnostic 1-10 glucose ity of (ACCU-CHEK 00:00: TID; [place] GUIDE TEST 00 ICD-10 Medical STRIPS) code E11.9 Branch strip Lancets Yes [id number] Check Univ ers (ACCU-CHEK 1-10 glucose ity of FASTCLIX 00:00: TID; [place] LANCET 00 ICD-10 Medical DRUM) Misc code E11.9 [facility] blood sugar Yes [id number] Check Univers diagnostic 1-10 glucose ity of (ACCU-CHEK 00:00: TID; [place] GUIDE TEST 00 ICD-10 Medical STRIPS) code E11.9 Branch strip Lancets Yes [id number] Check Univ ers (ACCU-CHEK 1-10 glucose ity of FASTCLIX 00:00: TID; [place] LANCET 00 ICD-10 Medical DRUM) Misc code E11.9 [facility] blood sugar Yes [id number] Check Univers diagnostic 1-10 glucose ity of (ACCU-CHEK 00:00: TID; [place] GUIDE TEST 00 ICD-10 Medical STRIPS) code E11.9 Branch strip Lancets Yes [id number] Check Univ ers (ACCU-CHEK 1-10 glucose ity of FASTCLIX 00:00: TID; [place] LANCET 00 ICD-10 Medical DRUM) Misc code E11.9 [facility] blood sugar Yes [id number] Check Univers diagnostic 1-10 glucose ity of (ACCU-CHEK 00:00: TID; [place] GUIDE TEST 00 ICD-10 Medical STRIPS) code E11.9 Branch strip Lancets Yes [id number] Check Univ ers (ACCU-CHEK 1-10 glucose ity of FASTCLIX 00:00: TID; [place] LANCET 00 ICD-10 Medical DRUM) Misc code E11.9 [facility] blood sugar Yes [id number] Check Univers diagnostic 1-10 glucose ity of (ACCU-CHEK 00:00: TID; [place] GUIDE TEST 00 ICD-10 Medical STRIPS) code E11.9 Branch strip Lancets Yes [id number] Check Univ ers (ACCU-CHEK 1-10 glucose ity of FASTCLIX 00:00: TID; [place] LANCET 00 ICD-10 Medical DRUM) Misc code E11.9 [facility] blood sugar Yes [id number] Check Univers diagnostic 1-10 glucose ity of (ACCU-CHEK 00:00: TID; [place] GUIDE TEST 00 ICD-10 Medical STRIPS) code E11.9 Branch strip Lancets Yes [id number] Check Univ ers (ACCU-CHEK 1-10 glucose ity of FASTCLIX 00:00: TID; [place] LANCET 00 ICD-10 Medical DRUM) Misc code E11.9 [facility] blood sugar Yes [id number] Check [facility] diagnostic 1-10 glucose ity of (ACCU-CHEK 00:00: TID; [place] GUIDE TEST 00 ICD-10 Medical STRIPS) code E11.9 Branch strip Lancets Yes [id number] Check Univ ers (ACCU-CHEK 1-10 glucose ity of FASTCLIX 00:00: TID; [place] LANCET 00 ICD-10 Medical DRUM) Misc code E11.9 [facility] blood sugar Yes [id number] Check [facility] diagnostic 1-10 glucose ity of (ACCU-CHEK 00:00: TID; [place] GUIDE TEST 00 ICD-10 Medical STRIPS) code E11.9 Branch strip Lancets Yes [id number] Check Univ ers (ACCU-CHEK 1-10 glucose ity of FASTCLIX 00:00: TID; [place] LANCET 00 ICD-10 Medical DRUM) Misc code E11.9 [facility] blood sugar Yes [id number] Check [facility] diagnostic 1-10 glucose ity of (ACCU-CHEK 00:00: TID; [place] GUIDE TEST 00 ICD-10 Medical STRIPS) code E11.9 Branch strip Lancets Yes [id number] Check Univ ers (ACCU-CHEK 1-10 glucose ity of FASTCLIX 00:00: TID; [place] LANCET 00 ICD-10 Medical DRUM) Misc code E11.9 [facility] blood sugar Yes [id number] Check [facility] diagnostic 1-10 glucose ity of (ACCU-CHEK 00:00: TID; [place] GUIDE TEST 00 ICD-10 Medical STRIPS) code E11.9 Branch strip Lancets Yes [id number] Check Univ ers (ACCU-CHEK 1-10 glucose ity of FASTCLIX 00:00: TID; [place] LANCET 00 ICD-10 Medical DRUM) Misc code E11.9 [facility] blood sugar Yes [id number] Check [facility] diagnostic 1-10 glucose ity of (ACCU-CHEK 00:00: TID; [place] GUIDE TEST 00 ICD-10 Medical STRIPS) code E11.9 Branch strip Lancets Yes [id number] Check Univ ers (ACCU-CHEK 1-10 glucose ity of FASTCLIX 00:00: TID; [place] LANCET 00 ICD-10 Medical DRUM) Misc code E11.9 [facility] blood sugar Yes [id number] Check [facility] diagnostic 1-10 glucose ity of (ACCU-CHEK 00:00: TID; [place] GUIDE TEST 00 ICD-10 Medical STRIPS) code E11.9 Branch strip Lancets Yes [id number] Check Univ ers (ACCU-CHEK 1-10 glucose ity of FASTCLIX 00:00: TID; [place] LANCET 00 ICD-10 Medical DRUM) Misc code E11.9 [facility] blood sugar Yes [id number] Check [facility] diagnostic 1-10 glucose ity of (ACCU-CHEK 00:00: TID; [place] GUIDE TEST 00 ICD-10 Medical STRIPS) code E11.9 Branch strip Lancets Yes [id number] Check Univ ers (ACCU-CHEK 1-10 glucose ity of FASTCLIX 00:00: TID; [place] LANCET 00 ICD-10 Medical DRUM) Misc code E11.9 [facility] blood sugar Yes [id number] Check [facility] diagnostic 1-10 glucose ity of (ACCU-CHEK 00:00: TID; [place] GUIDE TEST 00 ICD-10 Medical STRIPS) code E11.9 Branch strip Lancets Yes [id number] Check Univ ers (ACCU-CHEK 1-10 glucose ity of FASTCLIX 00:00: TID; [place] LANCET 00 ICD-10 Medical DRUM) Misc code E11.9 [facility] blood sugar Yes [id number] Check [facility] diagnostic 1-10 glucose ity of (ACCU-CHEK 00:00: TID; [place] GUIDE TEST 00 ICD-10 Medical STRIPS) code E11.9 Branch strip Lancets Yes [id number] Check Univ ers (ACCU-CHEK 1-10 glucose ity of FASTCLIX 00:00: TID; [place] LANCET 00 ICD-10 Medical DRUM) Misc code E11.9 [facility] blood sugar Yes [id number] Check [facility] diagnostic 1-10 glucose ity of (ACCU-CHEK 00:00: TID; [place] GUIDE TEST 00 ICD-10 Medical STRIPS) code E11.9 Branch strip ACCU-CHEK 2020- Yes [id number] Check Un rishab[facility] GUIDE 2-09 glucose ity of GLUCOSE 00:00: [place] daily [place] METER Misc 00 before Medical breakfast; Branch ICD-10 code E11.9 ACCU-CHEK 2020- Yes [id number] Check Un rishab[facility] GUIDE 2-09 glucose ity of GLUCOSE 00:00: once daily [place] METER Misc 00 before Medical breakfast; Branch ICD-10 code E11.9 ACCU-CHEK 2020- Yes [id number] Check Un rishab[facility] GUIDE 2-09 glucose ity of GLUCOSE 00:00: once daily [place] METER Misc 00 before Medical breakfast; Branch ICD-10 code E11.9 ACCU-CHEK 2020- Yes [id number] Check Un rishab[facility] GUIDE 2-09 glucose ity of GLUCOSE 00:00: once daily [place] METER Misc 00 before Medical breakfast; Branch ICD-10 code E11.9 ACCU-CHEK 2020- Yes [id number] Check Un rishab[facility] GUIDE 2-09 glucose ity of GLUCOSE 00:00: once daily [place] METER Misc 00 before Medical breakfast; Branch ICD-10 code E11.9 ACCU-CHEK 2020- Yes [id number] Check Un r[facility]ab[facility] GUIDE 2-09 glucose ity of GLUCOSE 00:00: once daily [place] METER Misc 00 before Medical breakfast; Branch ICD-10 code E11.9 ACCU-CHEK 2020- Yes [id number] Check Un rishab[facility] GUIDE 2-09 glucose ity of GLUCOSE 00:00: once daily [place] METER Misc 00 before Medical breakfast; Branch ICD-10 code E11.9 ACCU-CHEK 2020- Yes [id number] Check Un rishab[facility] GUIDE 2-09 glucose ity of GLUCOSE 00:00: once daily [place] METER Misc 00 before Medical breakfast; Branch ICD-10 code E11.9 ACCU-CHEK 2020- Yes [id number] Check Un r[facility]ab[facility] GUIDE 2-09 glucose ity of GLUCOSE 00:00: once daily [place] METER Misc 00 before Medical breakfast; Branch ICD-10 code E11.9 ACCU-CHEK 2020- Yes [id number] Check Un [facility] GUIDE 2-09 glucose ity of GLUCOSE 00:00: once daily [place] METER Misc 00 before Medical breakfast; Branch ICD-10 code E11.9 ACCU-CHEK 2020- Yes [id number] Check Un [facility] GUIDE 2-09 glucose ity of GLUCOSE 00:00: once daily [place] METER Misc 00 before Medical breakfast; Branch ICD-10 code E11.9 ACCU-CHEK 2020- Yes [id number] Check Un r[facility] GUIDE 2-09 glucose ity of GLUCOSE 00:00: once daily [place] METER Misc 00 before Medical breakfast; Branch ICD-10 code E11.9 ACCU-CHEK 2020- Yes [id number] Check Un [facility] GUIDE 2-09 glucose ity of GLUCOSE 00:00: once daily [place] METER Misc 00 before Medical breakfast; Branch ICD-10 code E11.9 ACCU-CHEK 2020- Yes [id number] Check Un [facility] GUIDE 2-09 glucose ity of GLUCOSE 00:00: once daily [place] METER Misc 00 before Medical breakfast; Branch ICD-10 code E11.9 ACCU-CHEK 2020- Yes [id number] Check Un [facility] GUIDE 2-09 glucose ity of GLUCOSE 00:00: once daily [place] METER Misc 00 before Medical breakfast; Branch ICD-10 code E11.9 ACCU-CHEK 2020- Yes [id number] Check Un [facility] GUIDE 2-09 glucose ity of GLUCOSE 00:00: once daily [place] METER Misc 00 before Medical breakfast; Branch ICD-10 code E11.9 ACCU-CHEK 2020- Yes [id number] Check Un [facility] GUIDE 2-09 glucose ity of GLUCOSE 00:00: once daily [place] METER Misc 00 before Medical breakfast; Branch ICD-10 code E11.9 ACCU-CHEK 2020- Yes [id number] Check Un [facility] GUIDE 2-09 glucose ity of GLUCOSE 00:00: once daily [place] METER Misc 00 before Medical breakfast; Branch ICD-10 code E11.9 ACCU-CHEK 2020- Yes [id number] Check Un [facility] GUIDE 2-09 glucose ity of GLUCOSE 00:00: once daily [place] METER Misc 00 before Medical breakfast; Branch ICD-10 code E11.9 OMEPRAZOLE 2020-0 Yes [id number] TAKE ONE [facility] 20 mg 8-09 CAPSULE BY ity of capsule 00:00: MOUTH [place] 00 DAILY Medical Branch OMEPRAZOLE 2020-0 Yes [id number] TAKE ONE [facility] 20 mg 8-09 CAPSULE BY ity of capsule 00:00: MOUTH [place] 00 DAILY Medical Branch OMEPRAZOLE 2021-0 Yes [id number] TAKE ONE [facility] 20 mg 8-09 CAPSULE BY ity of capsule 00:00: MOUTH [place] 00 DAILY Medical Branch OMEPRAZOLE 2021-0 Yes [id number] TAKE ONE [facility] 20 mg 8-09 CAPSULE BY ity of capsule 00:00: MOUTH [place] 00 DAILY Medical Branch OMEPRAZOLE 2021-0 Yes [id number] TAKE ONE [facility] 20 mg 8-09 CAPSULE BY ity of capsule 00:00: MOUTH [place] 00 DAILY Medical Branch OMEPRAZOLE 2021-0 Yes [id number] TAKE ONE [facility] 20 mg 8-09 CAPSULE BY ity of capsule 00:00: MOUTH [place] 00 DAILY Medical Branch OMEPRAZOLE 2021-0 Yes [id number] TAKE ONE [facility] 20 mg 8-09 CAPSULE BY ity of capsule 00:00: MOUTH [place] 00 DAILY Medical Branch OMEPRAZOLE 2021-0 Yes [id number] TAKE ONE [facility] 20 mg 8-09 CAPSULE BY ity of capsule 00:00: MOUTH [place] 00 DAILY Medical Branch OMEPRAZOLE 2021-0 Yes [id number] TAKE ONE [facility] 20 mg 8-09 CAPSULE BY ity of capsule 00:00: MOUTH [place] 00 DAILY Medical Branch OMEPRAZOLE 2021-0 Yes [id number] TAKE ONE [facility] 20 mg 8-09 CAPSULE BY ity of capsule 00:00: MOUTH [place] 00 DAILY Medical Branch OMEPRAZOLE 2021-0 Yes [id number] TAKE ONE [facility] 20 mg 8-09 CAPSULE BY ity of capsule 00:00: MOUTH [place] 00 DAILY Medical Branch OMEPRAZOLE 2021-0 Yes [id number] TAKE ONE [facility] 20 mg 8-09 CAPSULE BY ity of capsule 00:00: MOUTH [place] 00 DAILY Medical Branch OMEPRAZOLE 2021-0 Yes [id number] TAKE ONE [facility] 20 mg 8-09 CAPSULE BY ity of capsule 00:00: MOUTH [place] 00 DAILY Medical Branch OMEPRAZOLE 2021-0 Yes [id number] TAKE ONE [facility] 20 mg 8-09 CAPSULE BY ity of capsule 00:00: MOUTH [place] 00 DAILY Medical Branch OMEPRAZOLE 2021-0 Yes [id number] TAKE ONE [facility] 20 mg 8-09 CAPSULE BY ity of capsule 00:00: MOUTH [place] 00 DAILY Medical Branch OMEPRAZOLE 2021-0 Yes [id number] TAKE ONE [facility] 20 mg 8-09 CAPSULE BY ity of capsule 00:00: MOUTH [place] 00 DAILY Medical Branch OMEPRAZOLE 2021-0 Yes [id number] TAKE ONE [facility] 20 mg 8-09 CAPSULE BY ity of capsule 00:00: MOUTH [place] 00 DAILY Medical Branch OMEPRAZOLE 2021-0 Yes [id number] TAKE ONE [facility] 20 mg 8-09 CAPSULE BY ity of capsule 00:00: MOUTH [place] 00 DAILY Medical Branch OMEPRAZOLE 2021-0 Yes [id number] TAKE ONE [facility] 20 mg 8-09 CAPSULE BY ity of capsule 00:00: MOUTH [place] 00 DAILY Medical Branch Cholecalcif 202-0 Yes Take by Uni vers chavo, 5-19 mouth ity of Vitamin D3, 09:47: [place]. [place] (VITAMIN 27 Medical D3) 1,000 Branch unit Cap CALTRATE 2020-0 Yes 1{tbl} Take 1 Unive rs 600 + D 5-19 tablet by ity of ORAL 09:47: mouth 2 [place] [address] (two) Medical times Branch daily. Cholecalcif 2020-0 Yes Take by Uni vers chavo, 5-19 mouth ity of Vitamin D3, 09:47: [place]. [place] (VITAMIN 27 Medical D3) 1,000 Branch unit Cap CALTRATE 2020-0 Yes 1{tbl} Take 1 Unive rs 600 + D 5-19 tablet by ity of ORAL 09:47: mouth 2 [place] [address] (two) Medical times Branch daily. Cholecalcif 2020-0 Yes Take by Uni vers chavo, 5-19 mouth ity of Vitamin D3, 09:47: daily. [place] (VITAMIN 27 Medical D3) 1,000 Branch unit Cap CALTRATE 2020-0 Yes 1{tbl} Take 1 Unive rs 600 + D 5-19 tablet by ity of ORAL 09:47: mouth 2 [place] [address] (two) Medical times Branch daily. Cholecalcif 2020-0 Yes Take by Uni vers chavo, 5-19 mouth ity of Vitamin D3, 09:47: daily. [place] (VITAMIN 27 Medical D3) 1,000 Branch unit Cap CALTRATE 1-0 Yes 1{tbl} Take 1 Unive rs 600 + D 5-19 tablet by ity of ORAL 09:47: mouth 2 [place] [address] (two) Medical times Branch daily. Cholecalcif 2021-0 Yes Take by Uni vers chavo, 5-19 mouth ity of Vitamin D3, 09:47: daily. [place] (VITAMIN 27 Medical D3) 1,000 Branch unit Cap CALTRATE 2021-0 Yes 1{tbl} Take 1 Unive rs 600 + D 5-19 tablet by ity of ORAL 09:47: mouth 2 [place] [address] (two) Medical times Branch daily. Cholecalcif 2021-0 Yes Take by Uni vers chavo, 5-19 mouth ity of Vitamin D3, 09:47: daily. [place] (VITAMIN 27 Medical D3) 1,000 Branch unit Cap CALTRATE 2021-0 Yes 1{tbl} Take 1 Unive rs 600 + D 5-19 tablet by ity of ORAL 09:47: mouth 2 [place] [address] (two) Medical times Branch daily. Cholecalcif 2021-0 Yes Take by Uni vers chavo, 5-19 mouth ity of Vitamin D3, 09:47: daily. [place] (VITAMIN 27 Medical D3) 1,000 Branch unit Cap CALTRATE 1-0 Yes 1{tbl} Take 1 Unive rs 600 + D 5-19 tablet by ity of ORAL 09:47: mouth 2 [place] [address] (two) Medical times Branch daily. Cholecalcif 2021-0 Yes Take by Uni vers chavo, 5-19 mouth ity of Vitamin D3, 09:47: daily. [place] (VITAMIN 27 Medical D3) 1,000 Branch unit Cap CALTRATE 1-0 Yes 1{tbl} Take 1 Unive rs 600 + D 5-19 tablet by ity of ORAL 09:47: mouth 2 [place] [address] (two) Medical times Branch daily. Cholecalcif 2021-0 Yes Take by Uni vers chavo, 5-19 mouth ity of Vitamin D3, 09:47: daily. [place] (VITAMIN 27 Medical D3) 1,000 Branch unit Cap CALTRATE 2021-0 Yes 1{tbl} Take 1 Unive rs 600 + D 5-19 tablet by ity of ORAL 09:47: mouth 2 [place] [address] (two) Medical times Branch daily. Cholecalcif 2021-0 Yes Take by Uni vers chavo, 5-19 mouth ity of Vitamin D3, 09:47: daily. [place] (VITAMIN 27 Medical D3) 1,000 Branch unit Cap CALTRATE 2021-0 Yes 1{tbl} Take 1 Unive rs 600 + D 5-19 tablet by ity of ORAL 09:47: mouth 2 [place] 27 (two) Medical times Branch daily. Cholecalcif 2021-0 Yes Take by Uni vers chavo, 5-19 mouth ity of Vitamin D3, 09:47: daily. [place] (VITAMIN 27 Medical D3) 1,000 Branch unit Cap CALTRATE 2021-0 Yes 1{tbl} Take 1 Unive rs 600 + D 5-19 tablet by ity of ORAL 09:47: mouth 2 [place] [address] (two) Medical times Branch daily. Cholecalcif 2021-0 Yes Take by Uni vers chavo, 5-19 mouth ity of Vitamin D3, 09:47: daily. [place] (VITAMIN 27 Medical D3) 1,000 Branch unit Cap CALTRATE 2021-0 Yes 1{tbl} Take 1 Unive rs 600 + D 5-19 tablet by ity of ORAL 09:47: mouth 2 [place] [address] (two) Medical times Branch daily. Cholecalcif 2021-0 Yes Take by Uni vers chavo, 5-19 mouth ity of Vitamin D3, 09:47: daily. [place] (VITAMIN 27 Medical D3) 1,000 Branch unit Cap CALTRATE 2021-0 Yes 1{tbl} Take 1 Unive rs 600 + D 5-19 tablet by ity of ORAL 09:47: mouth 2 [place] [address] (two) Medical times Branch daily. Cholecalcif 2021-0 Yes Take by Uni vers chavo, 5-19 mouth ity of Vitamin D3, 09:47: daily. [place] (VITAMIN 27 Medical D3) 1,000 Branch unit Cap CALTRATE 2021-0 Yes 1{tbl} Take 1 Unive rs 600 + D 5-19 tablet by ity of ORAL 09:47: mouth 2 [place] [address] (two) Medical times Branch daily. Cholecalcif 2021-0 Yes Take by Uni vers chavo, 5-19 mouth ity of Vitamin D3, 09:47: daily. [place] (VITAMIN 27 Medical D3) 1,000 Branch unit Cap CALTRATE 2021-0 Yes 1{tbl} Take 1 Unive rs 600 + D 5-19 tablet by ity of ORAL 09:47: mouth 2 [place] [address] (two) Medical times Branch daily. Cholecalcif 2021-0 Yes Take by Uni vers chavo, 5-19 mouth ity of Vitamin D3, 09:47: daily. [place] (VITAMIN 27 Medical D3) 1,000 Branch unit Cap CALTRATE 2020-0 Yes 1{tbl} Take 1 Unive rs 600 + D 5-19 tablet by ity of ORAL 09:47: mouth 2 [place] 27 (two) Medical times Branch daily. Cholecalcif 2020-0 Yes Take by Uni vers chavo, 5-19 mouth ity of Vitamin D3, 09:47: daily. [place] (VITAMIN 27 Medical D3) 1,000 Branch unit Cap CALTRATE 2020-0 Yes 1{tbl} Take 1 Unive rs 600 + D 5-19 tablet by ity of ORAL 09:47: mouth 2 [place] 27 (two) Medical times Branch daily. Cholecalcif 2020-0 Yes Take by Uni vers chavo, 5-19 mouth ity of Vitamin D3, 09:47: daily. [place] (VITAMIN 27 Medical D3) 1,000 Branch unit Cap CALTRATE 2020-0 Yes 1{tbl} Take 1 Unive rs 600 + D 5-19 tablet by ity of ORAL 09:47: mouth 2 [place] [address] (two) Medical times Branch daily. Cholecalcif 2020-0 Yes Take by Uni vers chavo, 5-19 mouth ity of Vitamin D3, 09:47: daily. [place] (VITAMIN 27 Medical D3) 1,000 Branch unit Cap CALTRATE 0 Yes 1{tbl} Take 1 Unive rs 600 + D 5-19 tablet by ity of ORAL 09:47: mouth 2 [place] 27 (two) Medical times Branch daily. candesartan Yes [id number] 4mg Take 1 [facility] 4 mg tablet 5-05 tablet by ity of 00:00: mouth [place] 00 daily. Medical DOSE Branch DECREASE candesartan 0 2- No [id number] 4mg Take 1 [facility] 4 mg tablet 5-05 07-21 tablet by it y of 00:00: 00:00 mouth [place] 00 :00 daily. Medical DOSE Branch DECREASE CYANOCOBALA Yes 1000ug Place Uni vers MIN/COBAMAM 3-09 1,000 mcg ity of BELTRAN (B12 10:20: under the [place]) 38 tongue Medical daily. Branch iron Yes 150mg Take 150 [facility] polysacchar 3-09 mg by ity of ides 10:20: mouth [place] (FERREX 38 daily. Medical 150) 150 mg Branch iron capsule CYANOCOBALA 2021-[address] [facility] vers MIN/COBAMAM 3-09 1,000 mcg ity of BELTRAN (B12 10:20: [place] the [place]) 38 tongue Medical daily. Branch iron 2021-0 Yes 150mg Take 150 [facility] polysacchar 3-09 mg by ity of ides 10:20: mouth [place] (FERREX 38 daily. Medical 150) 150 mg Branch iron capsule CYANOCOBALA 2021-[address] [facility] vers MIN/COBAMAM 3-09 1,000 mcg ity of BELTRAN (B12 10:20: [place] the [place]) 38 tongue Medical daily. Branch iron 2021-0 Yes 150mg Take 150 [facility] polysacchar 3-09 mg by ity of ides 10:20: mouth [place] (FERREX 38 daily. Medical 150) 150 mg Branch iron capsule CYANOCOBALA 2021-[address] [facility] vers MIN/COBAMAM 3-09 1,000 mcg ity of BELTRAN (B12 10:20: [place] the [place]) 38 tongue Medical daily. Branch iron 2021-0 Yes 150mg Take 150 [facility] polysacchar 3-09 mg by ity of ides 10:20: mouth [place] (FERREX 38 daily. Medical 150) 150 mg Branch iron capsule CYANOCOBALA 2021-[address] [facility] vers MIN/COBAMAM 3-09 1,000 mcg ity of BELTRAN (B12 10:20: [place] the [place]) 38 tongue Medical daily. Branch iron 2021-0 Yes 150mg Take 150 [facility] polysacchar 3-09 mg by ity of ides 10:20: mouth [place] (FERREX 38 daily. Medical 150) 150 mg Branch iron capsule CYANOCOBALA 2021-[address] [facility] vers MIN/COBAMAM 3-09 1,000 mcg ity of BELTRAN (B12 10:20: [place] the [place]) 38 tongue Medical daily. Branch iron 2021-0 Yes 150mg Take 150 [facility] polysacchar 3-09 mg by ity of ides 10:20: mouth [place] (FERREX 38 daily. Medical 150) 150 mg Branch iron capsule CYANOCOBALA 2021-[address] [facility] vers MIN/COBAMAM 3-09 1,000 mcg ity of BELTRAN (B12 10:20: [place] the [place]) 38 tongue Medical daily. Branch iron 2021-0 Yes 150mg Take 150 [facility] polysacchar 3-09 mg by ity of ides 10:20: mouth [place] (FERREX 38 daily. Medical 150) 150 mg Branch iron capsule CYANOCOBALA 2021-[address] [facility] vers MIN/COBAMAM 3-09 1,000 mcg ity of BELTRAN (B12 10:20: [place] the [place]) 38 tongue Medical daily. Branch iron 2021-0 Yes 150mg Take 150 [facility] polysacchar 3-09 mg by ity of ides 10:20: mouth [place] (FERREX 38 daily. Medical 150) 150 mg Branch iron capsule CYANOCOBALA 2021-[address] [facility] vers MIN/COBAMAM 3-09 1,000 mcg ity of BELTRAN (B12 10:20: [place] the [place] 38 tongue Medical daily. Branch iron 2021-0 Yes 150mg Take 150 [facility] polysacchar 3-09 mg by ity of ides 10:20: mouth [place] (FERREX 38 daily. Medical 150) 150 mg Branch iron capsule CYANOCOBALA 2021-[address] [facility] vers MIN/COBAMAM 3-09 1,000 mcg ity of BELTRAN (B12 10:20: [place] the [place] 38 tongue Medical daily. Branch iron 2021-0 Yes 150mg Take 150 [facility] polysacchar 3-09 mg by ity of ides 10:20: mouth [place] (FERREX 38 daily. Medical 150) 150 mg Branch iron capsule CYANOCOBALA 2021-[address] [facility] vers MIN/COBAMAM 3-09 1,000 mcg ity of BELTRAN (B12 10:20: [place] the [place] 38 tongue Medical daily. Branch iron 2021-0 Yes 150mg Take 150 [facility] polysacchar 3-09 mg by ity of ides 10:20: mouth [place] (FERREX 38 daily. Medical 150) 150 mg Branch iron capsule CYANOCOBALA 2021-[address] [facility] vers MIN/COBAMAM 3-09 1,000 mcg ity of BELTRAN (B12 10:20: [place] the [place]) 38 tongue Medical daily. Branch iron 2021-0 Yes 150mg Take 150 [facility] polysacchar 3-09 mg by ity of ides 10:20: mouth [place] (FERREX 38 daily. Medical 150) 150 mg Branch iron capsule CYANOCOBALA 2021-[address] [facility] vers MIN/COBAMAM 3-09 1,000 mcg ity of BELTRAN (B12 10:20: [place] the [place] 38 tongue Medical daily. Branch iron 2021-0 Yes 150mg Take 150 [facility] polysacchar 3-09 mg by ity of ides 10:20: mouth [place] (FERREX 38 daily. Medical 150) 150 mg Branch iron capsule CYANOCOBALA 2021-[address] [facility] vers MIN/COBAMAM 3-09 1,000 mcg ity of BELTRAN (B12 10:20: [place] the [place] 38 tongue Medical daily. Branch iron 2021-0 Yes 150mg Take 150 [facility] polysacchar 3-09 mg by ity of ides 10:20: mouth [place] (FERREX 38 daily. Medical 150) 150 mg Branch iron capsule CYANOCOBALA 2021-[address] Uni vers MIN/COBAMAM 3-09 1,000 mcg ity of BELTRAN (B12 10:20: [place] the [place] 38 tongue Medical daily. Branch iron 1-0 Yes 150mg Take 150 [facility] polysacchar 3-09 mg by ity of ides 10:20: mouth [place] (FERREX 38 daily. Medical 150) 150 mg Branch iron capsule CYANOCOBALA 1-[address] [facility] vers MIN/COBAMAM 3-09 1,000 mcg ity of BELTRAN (B12 10:20: [place] the [place] 38 tongue Medical daily. Branch iron 2021-0 Yes 150mg Take 150 [facility] polysacchar 3-09 mg by ity of ides 10:20: mouth [place] (FERREX 38 daily. Medical 150) 150 mg Branch iron capsule CYANOCOBALA 2021-[address] Uni vers MIN/COBAMAM 3-09 1,000 mcg ity of BELTRAN (B12 10:20: [place] the [place] 38 tongue Medical daily. Branch iron 2021-0 Yes 150mg Take 150 [facility] polysacchar 3-09 mg by ity of ides 10:20: mouth [place] (FERREX 38 daily. Medical 150) 150 mg Branch iron capsule CYANOCOBALA 2021-[address] Uni vers MIN/COBAMAM 3-09 1,000 mcg ity of BELTRAN (B12 10:20: [place] the [place] 38 tongue Medical daily. Branch iron 0 Yes 150mg Take 150 [facility] polysacchar 3-09 mg by ity of ides 10:20: mouth [place] (FERREX 38 daily. Medical 150) 150 mg Branch iron capsule CYANOCOBALA Yes [address] Place Uni vers MIN/COBAMAM 3-09 1,000 mcg ity of BELTRAN (B12 10:20: [place] the [place] 38 tongue Medical daily. Branch iron 0 Yes 150mg Take 150 [facility] polysacchar 3-09 mg by ity of ides 10:20: mouth [place] (FERREX 38 daily. Medical 150) 150 mg Branch iron capsule XIIDRA Yes Place in [facility] OPHTHALMIC 3-09 each eye. ity of 10:20: [place] 37 Medical Branch Zinc 50 mg Yes 1{tbl} Take 1 Uni vers Tab 3-09 tablet by ity of 10:20: mouth [place] 37 daily. Medical Branch VITAMIN E Yes 180mg Take 180 Uni vers ORAL 3-09 mg by ity of 10:20: mouth [place] 37 daily. Medical Branch XIIDRA Yes Place in [facility] OPHTHALMIC 3-09 each eye. ity of 10:20: [place] 37 Medical Branch Zinc 50 mg 0 Yes 1{tbl} Take 1 Uni vers Tab 3-09 tablet by ity of 10:20: mouth [place] 37 daily. Medical Branch VITAMIN E Yes 180mg Take 180 Uni vers ORAL 3-09 mg by ity of 10:20: mouth [place] 37 daily. Medical Branch XIIDRA Yes Place in [facility] OPHTHALMIC 3-09 each eye. ity of 10:20: [place] 37 Medical Branch Zinc 50 mg 2020-0 Yes 1{tbl} Take 1 Uni vers Tab 3-09 tablet by ity of 10:20: mouth [place] 37 daily. Medical Branch VITAMIN E 0 Yes 180mg Take 180 Uni vers ORAL 3-09 mg by ity of 10:20: mouth [place] 37 daily. Medical Branch [facility]IDRA Yes Place in [facility] OPHTHALMIC 3-09 each eye. ity of 10:20: [place] 37 Medical Branch Zinc 50 mg 2020-0 Yes 1{tbl} Take 1 Uni vers Tab 3-09 tablet by ity of 10:20: mouth [place] 37 daily. Medical Branch VITAMIN E Yes 180mg Take 180 Uni vers ORAL 3-09 mg by ity of 10:20: mouth [place] 37 daily. Medical Branch [facility]IDRA Yes Place in [facility] OPHTHALMIC 3-09 each eye. ity of 10:20: [place] 37 Medical Branch Zinc 50 mg Yes 1{tbl} Take 1 Uni vers Tab 3-09 tablet by ity of 10:20: mouth [place] 37 daily. Medical Branch VITAMIN E Yes 180mg Take 180 Uni vers ORAL 3-09 mg by ity of 10:20: mouth [place] 37 daily. Medical Branch XISCRA Yes Place in [facility] OPHTHALMIC 3-09 each eye. ity of 10:20: [place] 37 Medical Branch Zinc 50 mg Yes 1{tbl} Take 1 Uni vers Tab 3-09 tablet by ity of 10:20: mouth [place] 37 daily. Medical Branch VITAMIN E Yes 180mg Take 180 Uni vers ORAL 3-09 mg by ity of 10:20: mouth [place] 37 daily. Medical Branch XISCRA Yes Place in [facility] OPHTHALMIC 3-09 each eye. ity of 10:20: [place] 37 Medical Branch Zinc 50 mg Yes 1{tbl} Take 1 Uni vers Tab 3-09 tablet by ity of 10:20: mouth [place] 37 daily. Medical Branch VITAMIN E Yes 180mg Take 180 Uni vers ORAL 3-09 mg by ity of 10:20: mouth [place] 37 daily. Medical Branch XIIDRA Yes Place in [facility] OPHTHALMIC 3-09 each eye. ity of 10:20: [place] 37 Medical Branch Zinc 50 mg Yes 1{tbl} Take 1 Uni vers Tab 3-09 tablet by ity of 10:20: mouth [place] 37 daily. Medical Branch VITAMIN E Yes 180mg Take 180 Uni vers ORAL 3-09 mg by ity of 10:20: mouth [place] 37 daily. Medical Branch XIIDRA Yes Place in [facility] OPHTHALMIC 3-09 each eye. ity of 10:20: [place] 37 Medical Branch Zinc 50 mg Yes 1{tbl} Take 1 Uni vers Tab 3-09 tablet by ity of 10:20: mouth [place] 37 daily. Medical Branch VITAMIN E Yes 180mg Take 180 Uni vers ORAL 3-09 mg by ity of 10:20: mouth [place] 37 daily. Medical Branch XISCRA Yes Place in [facility] OPHTHALMIC 3-09 each eye. ity of 10:20: [place] 37 Medical Branch Zinc 50 mg Yes 1{tbl} Take 1 Uni vers Tab 3-09 tablet by ity of 10:20: mouth [place] 37 daily. Medical Branch VITAMIN E Yes 180mg Take 180 Uni vers ORAL 3-09 mg by ity of 10:20: mouth [place] 37 daily. Medical Branch [facility] Yes Place in [facility] OPHTHALMIC 3-09 each eye. ity of 10:20: [place] 37 Medical Branch Zinc 50 mg Yes 1{tbl} Take 1 Uni vers Tab 3-09 tablet by ity of 10:20: mouth [place] 37 daily. Medical Branch VITAMIN E Yes 180mg Take 180 Uni vers ORAL 3-09 mg by ity of 10:20: mouth [place] 37 daily. [facility] Yes Place in [facility] OPHTHALMIC 3-09 each eye. ity of 10:20: 37 Medical Branch Zinc 50 mg Yes 1{tbl} Take 1 Uni vers Tab 3-09 tablet by ity of 10:20: mouth [place] 37 daily. [facility] VITAMIN E Yes 180mg Take 180 Uni vers ORAL 3-09 mg by ity of 10:20: mouth [place] 37 daily. [facility] Yes Place in [facility] OPHTHALMIC 3-09 each eye. ity of 10:20: [place] 37 [facility] Zinc 50 mg Yes 1{tbl} Take 1 Uni vers Tab 3-09 tablet by ity of 10:20: mouth [place] 37 daily. [facility] VITAMIN E Yes 180mg Take 180 Uni vers ORAL 3-09 mg by ity of 10:20: mouth [place] 37 daily. [facility] XISCRA Yes Place in [facility] OPHTHALMIC 3-09 each eye. ity of 10:20: [place] 37 [facility] Zinc 50 mg Yes 1{tbl} Take 1 Uni vers Tab 3-09 tablet by ity of 10:20: mouth [place] 37 daily. [facility] VITAMIN E Yes 180mg Take 180 Uni vers ORAL 3-09 mg by ity of 10:20: mouth [place] 37 daily. [facility] XIIDRA Yes Place in [facility] OPHTHALMIC 3-09 each eye. ity of 10:20: [place] 37 [facility] Zinc 50 mg Yes 1{tbl} Take 1 Uni vers Tab 3-09 tablet by ity of 10:20: mouth [place] 37 daily. [facility] VITAMIN E Yes 180mg Take 180 Uni vers ORAL 3-09 mg by ity of 10:20: mouth [place] 37 daily. [facility] XIIDRA Yes Place in [facility] OPHTHALMIC 3-09 each eye. ity of 10:20: [place] 37 [facility] Zinc 50 mg Yes 1{tbl} Take 1 Uni vers Tab 3-09 tablet by ity of 10:20: mouth [place] 37 daily. [facility] VITAMIN E Yes 180mg Take 180 Uni vers ORAL 3-09 mg by ity of 10:20: mouth [place] 37 daily. [facility] XIIDRA Yes Place in [facility] OPHTHALMIC 3-09 each eye. ity of 10:20: [place] 37 [facility] Zinc 50 mg Yes 1{tbl} Take 1 Uni vers Tab 3-09 tablet by ity of 10:20: mouth [place] 37 daily. [facility] VITAMIN E Yes 180mg Take 180 Uni vers ORAL 3-09 mg by ity of 10:20: mouth [place] 37 daily. [facility] Branch XI[facility]RA Yes Place in [facility] OPHTHALMIC 3-09 each eye. ity of 10:20: [place] 37 [facility] Zinc 50 mg Yes 1{tbl} Take 1 Uni vers Tab 3-09 tablet by ity of 10:20: mouth [place] 37 daily. [facility] Branch VITAMIN E Yes 180mg Take 180 Uni vers ORAL 3-09 mg by ity of 10:20: mouth [place] 37 daily. Medical Branch XI[facility]RA Yes Place in [facility] OPHTHALMIC 3-09 each eye. ity of 10:20: [place] 37 [facility] Zinc 50 mg Yes 1{tbl} Take 1 Uni vers Tab 3-09 tablet by ity of 10:20: mouth [place] 37 daily. [facility] Branch VITAMIN E Yes 180mg Take 180 Uni vers ORAL 3-09 mg by ity of 10:20: mouth [place] 37 daily. Medical Branch metFORMIN Yes 1000mg Take 1,[address] [facility] (GLUCOPHAGE 4-03 mg by [email or web address] ) 1000 MG 15:08: mouth 2 Medic al tablet 09 (two) Center times daily with breakfast and dinner. losartan Yes 25mg QD Take [address] [facility] (COZAAR) 25 4-03 by mouth [facility] MG tablet 15:08: daily. Medica l 09 Center levothyroxi Yes 75ug Take [address] [facility] ne 4-03 mcg by [email or web address] (SYNTHROID, 15:08: mouth Medic al LEVOTHROID) 09 Every Center 75 MCG morning on tablet an empty stomach. cholecalcif Yes 1000U QD Take 1,[address] [facility] chavo, 4-03 Units by [facility] [facility] vitamin D3, 15:08: mouth Medic al 1,000 unit 09 daily. Center capsule omeprazole omeprazole No omeprazole [facility] 40 mg 40 mg 40 mg Medical capsule,del capsule,del capsule,de ayed ayed layed release release release Restasis Restasis No Restasis April via 0.05 % eye 0.05 % eye 0.05 % eye Medical drops in a drops in a drops in a dropperette dropperette dropperett e Suprep Suprep No Suprep [facility] Bowel Prep Bowel Prep Bowel Prep Medical Kit 17.5 Kit 17.5 Kit 17.5 gram-3.13 gram-3.13 gram-3.13 gram-1.6 gram-1.6 gram-1.6 gram oral gram oral gram oral solution solution solution triamcinolo triamcinolo No triamcinol [facility] ne ne one Medical acetonide acetonide acetonide 0.1 % 0.1 % 0.1 % topical topical topical cream cream cream UltraFlora UltraFlora No UltraFlora [facility] Biome Pro - Biome Pro - Biome Pro Medical 90 Capsules 90 Capsules - 90 1 capsule 1 capsule Capsules 1 per day per day capsule Take 1 Take 1 per day capsule PO capsule PO Take 1 every day every day capsule PO as directed as directed every day as directed ursodiol ursodiol No ursodiol April via 300 mg 300 mg 300 mg Medical capsule capsule capsule Xiidra 5 % Xiidra 5 % No Xiidra 5 % [facility] eye drops eye drops eye drops Medical in a in a in a dropperette dropperette dropperett e Accu-Chek Accu-Chek No Accu-Chek [facility] Fastclix Fastclix Fastclix Med ical Lancet Drum Lancet Drum Lancet Drum accu-chek accu-chek No accu-chek [facility] guide me guide me guide me Med ical w/device w/device w/device kit kit kit Accu-Chek Accu-Chek No Accu-Chek [facility] Guide test Guide test Guide test Medical strips strips strips Anucort-HC Anucort-HC No Anucort-HC [facility] 25 mg 25 mg 25 mg Medical suppository suppository suppositor y atorvastati atorvastati No atorvastat [facility] n 80 mg n 80 mg in 80 mg Medic al tablet tablet tablet calcipotrie calcipotrie No calcipotri [facility] ne 0.005 % ne 0.005 % janny 0.005 Medical topical topical % topical cream cream cream candesartan candesartan No candesarta [facility] 4 mg tablet 4 mg tablet n 4 mg Medical tablet candesartan candesartan No candesarta [facility] 8 mg tablet 8 mg tablet n 8 mg Medical tablet cephalexin cephalexin No 1capsul cephalexin [facility] 250 mg 250 mg e(s) 250 mg Medical capsule capsule capsule Take 1 Take 1 Take 1 capsule by capsule by capsule by oral route oral route oral route as as as directed. directed. directed. Fluzone Fluzone No Fluzone [facility] High-Dose High-Dose High-Dose Medical (PF) 180 (PF) 180 (PF) 180 mcg/0.5 mL mcg/0.5 mL mcg/0.5 mL intramuscul intramuscul intramuscu ar syringe ar syringe lar syringe Fluzone Fluzone No Fluzone [facility] High-Dose High-Dose High-Dose Medical Quad Quad Quad (PF) 240 (PF) 240 (PF) 240 mcg/0.7 mL mcg/0.7 mL mcg/0.7 mL IM syringe IM syringe IM syringe Januvia 100 Januvia 100 No Januvia [facility] mg tablet mg tablet 100 mg Med ical tablet Levoxyl 75 Levoxyl 75 No Levoxyl 75 [facility] mcg tablet mcg tablet mcg tablet Medical metformin metformin No metformin [facility] 1,000 mg 1,000 mg 1,000 mg Med ical tablet tablet tablet metoclopram metoclopram No metoclopra [facility] beltran 10 mg beltran 10 mg mide 10 mg Medical tablet tablet tablet naproxen naproxen No naproxen April via 500 mg 500 mg 500 mg Medical tablet tablet tablet nitrofurant nitrofurant No nitrofuran [facility] oin oin toin Medical monohydrate monohydrate monohydrat /macrocryst /macrocryst e/macrocry als 100 mg als 100 mg stals 100 capsule capsule mg capsule Take 1 Take 1 Take 1 capsule by capsule by capsule by oral route oral route oral route as as as directed. directed. directed. ofloxacin ofloxacin No ofloxacin [facility] 0.3 % eye 0.3 % eye 0.3 % eye Medical drops drops drops omeprazole omeprazole No omeprazole [facility] 20 mg 20 mg 20 mg Medical capsule,del capsule,del capsule,de ayed ayed layed release release release omeprazole omeprazole No omeprazole [facility] 40 mg 40 mg 40 mg Medical capsule,del capsule,del capsule,de ayed ayed layed release release release Restasis Restasis No Restasis April via 0.05 % eye 0.05 % eye 0.05 % eye Medical drops in a drops in a drops in a dropperette dropperette dropperett e Suprep Suprep No Suprep [facility] Bowel Prep Bowel Prep Bowel Prep Medical Kit 17.5 Kit 17.5 Kit 17.5 gram-3.13 gram-3.13 gram-3.13 gram-1.6 gram-1.6 gram-1.6 gram oral gram oral gram oral solution solution solution triamcinolo triamcinolo No triamcinol [facility] ne ne one Medical acetonide acetonide acetonide 0.1 % 0.1 % 0.1 % topical topical topical cream cream cream UltraFlora UltraFlora No UltraFlora [facility] Biome Pro - Biome Pro - Biome Pro Medical 90 Capsules 90 Capsules - 90 1 capsule 1 capsule Capsules 1 per day per day capsule Take 1 Take 1 per day capsule PO capsule PO Take 1 every day every day capsule PO as directed as directed every day as directed ursodiol ursodiol No ursodiol April via 300 mg 300 mg 300 mg Medical capsule capsule capsule Xiidra 5 % Xiidra 5 % No Xiidra 5 % [facility] eye drops eye drops eye drops Medical in a in a in a dropperette dropperette dropperett e Accu-Chek Accu-Chek No Accu-Chek [facility] Fastclix Fastclix Fastclix Med ical Lancet Drum Lancet Drum Lancet Drum accu-chek accu-chek No accu-chek [facility] guide me guide me guide me Med ical w/device w/device w/device kit kit kit Accu-Chek Accu-Chek No Accu-Chek [facility] Guide test Guide test Guide test Medical strips strips strips Anucort-HC Anucort-HC No Anucort-HC [facility] 25 mg 25 mg 25 mg Medical suppository suppository suppositor y atorvastati atorvastati No atorvastat [facility] n 80 mg n 80 mg in 80 mg Medic al tablet tablet tablet calcipotrie calcipotrie No calcipotri [facility] ne 0.005 % ne 0.005 % janny 0.005 Medical topical topical % topical cream cream cream candesartan candesartan No candesarta [facility] 4 mg tablet 4 mg tablet n 4 mg Medical tablet candesartan candesartan No candesarta [facility] 8 mg tablet 8 mg tablet n 8 mg Medical tablet cephalexin cephalexin No cephalexin [facility] 250 mg 250 mg 250 mg Medical capsule capsule capsule Take 1 Take 1 Take 1 capsule by capsule by capsule by oral route oral route oral route as as as directed. directed. directed. Fluzone Fluzone No Fluzone [facility] High-Dose High-Dose High-Dose Medical (PF) 180 (PF) 180 (PF) 180 mcg/0.5 mL mcg/0.5 mL mcg/0.5 mL intramuscul intramuscul intramuscu ar syringe ar syringe lar syringe Fluzone Fluzone No Fluzone [facility] High-Dose High-Dose High-Dose Medical Quad Quad Quad (PF) 240 (PF) 240 (PF) 240 mcg/0.7 mL mcg/0.7 mL mcg/0.7 mL IM syringe IM syringe IM syringe Januvia 100 Januvia 100 No Januvia [facility] mg tablet mg tablet 100 mg Med ical tablet Levoxyl 75 Levoxyl 75 No Levoxyl 75 [facility] mcg tablet mcg tablet mcg tablet Medical metformin metformin No metformin [facility] 1,000 mg 1,000 mg 1,000 mg Med ical tablet tablet tablet metoclopram metoclopram No metoclopra [facility] beltran 10 mg beltran 10 mg mide 10 mg Medical tablet tablet tablet naproxen naproxen No naproxen April via 500 mg 500 mg 500 mg Medical tablet tablet tablet nitrofurant nitrofurant No nitrofuran [facility] oin oin toin Medical monohydrate monohydrate monohydrat /macrocryst /macrocryst e/macrocry als 100 mg als 100 mg stals 100 capsule capsule mg capsule Take 1 Take 1 Take 1 capsule by capsule by capsule by oral route oral route oral route as as as directed. directed. directed. ofloxacin ofloxacin No ofloxacin [facility] 0.3 % eye 0.3 % eye 0.3 % eye Medical drops drops drops omeprazole omeprazole No omeprazole [facility] 20 mg 20 mg 20 mg Medical capsule,del capsule,del capsule,de ayed ayed layed release release release omeprazole omeprazole No omeprazole [facility] 40 mg 40 mg 40 mg Medical capsule,del capsule,del capsule,de ayed ayed layed release release release ondansetron ondansetron No ondansetro [facility] 4 mg 4 mg n 4 mg Medical disintegrat disintegrat disintegra ing tablet ing tablet ting tablet Restasis Restasis No Restasis April via 0.05 % eye 0.05 % eye 0.05 % eye Medical drops in a drops in a drops in a dropperette dropperette dropperett e Suprep Suprep No Suprep [facility] Bowel Prep Bowel Prep Bowel Prep Medical Kit 17.5 Kit 17.5 Kit 17.5 gram-3.13 gram-3.13 gram-3.13 gram-1.6 gram-1.6 gram-1.6 gram oral gram oral gram oral solution solution solution triamcinolo triamcinolo No triamcinol [facility] ne ne one Medical acetonide acetonide acetonide 0.1 % 0.1 % 0.1 % topical topical topical cream cream cream UltraFlora UltraFlora No UltraFlora [facility] Biome Pro - Biome Pro - Biome Pro Medical 90 Capsules 90 Capsules - 90 1 capsule 1 capsule Capsules 1 per day per day capsule Take 1 Take 1 per day capsule PO capsule PO Take 1 every day every day capsule PO as directed as directed every day as directed ursodiol ursodiol No ursodiol April via 300 mg 300 mg 300 mg Medical capsule capsule capsule Xiidra 5 % Xiidra 5 % No Xiidra 5 % [facility] eye drops eye drops eye drops Medical in a in a in a dropperette dropperette dropperett e Accu-Chek Accu-Chek No Accu-Chek [facility] Fastclix Fastclix Fastclix Med ical Lancet Drum Lancet Drum Lancet Drum accu-chek accu-chek No accu-chek [facility] guide me guide me guide me Med ical w/device w/device w/device kit kit kit Accu-Chek Accu-Chek No Accu-Chek [facility] Guide test Guide test Guide test Medical strips strips strips Anucort-HC Anucort-HC No Anucort-HC [facility] 25 mg 25 mg 25 mg Medical suppository suppository suppositor y atorvastati atorvastati No atorvastat [facility] n 80 mg n 80 mg in 80 mg Medic al tablet tablet tablet benzonatate benzonatate No benzonatat [facility] 200 mg 200 mg e 200 mg Medical capsule capsule capsule calcipotrie calcipotrie No calcipotri [facility] ne 0.005 % ne 0.005 % janny 0.005 Medical topical topical % topical cream cream cream candesartan candesartan No candesarta [facility] 4 mg tablet 4 mg tablet n 4 mg Medical tablet candesartan candesartan No candesarta [facility] 8 mg tablet 8 mg tablet n 8 mg Medical tablet cephalexin cephalexin No cephalexin [facility] 250 mg 250 mg 250 mg Medical capsule capsule capsule Take 1 Take 1 Take 1 capsule by capsule by capsule by oral route oral route oral route as as as directed. directed. directed. Fluzone Fluzone No Fluzone [facility] High-Dose High-Dose High-Dose Medical (PF) 180 (PF) 180 (PF) 180 mcg/0.5 mL mcg/0.5 mL mcg/0.5 mL intramuscul intramuscul intramuscu ar syringe ar syringe lar syringe Fluzone Fluzone No Fluzone [facility] High-Dose High-Dose High-Dose Medical Quad Quad Quad (PF) 240 (PF) 240 (PF) 240 mcg/0.7 mL mcg/0.7 mL mcg/0.7 mL IM syringe IM syringe IM syringe Januvia 100 Januvia 100 No Januvia [facility] mg tablet mg tablet 100 mg Med ical tablet Levoxyl 75 Levoxyl 75 No Levoxyl 75 [facility] mcg tablet mcg tablet mcg tablet Medical metformin metformin No metformin [facility] 1,000 mg 1,000 mg 1,000 mg Med ical tablet tablet tablet metoclopram metoclopram No metoclopra [facility] beltran 10 mg beltran 10 mg mide 10 mg Medical tablet tablet tablet naproxen naproxen No naproxen April via 500 mg 500 mg 500 mg Medical tablet tablet tablet nitrofurant nitrofurant No nitrofuran [facility] oin oin toin Medical monohydrate monohydrate monohydrat /macrocryst /macrocryst e/macrocry als 100 mg als 100 mg stals 100 capsule capsule mg capsule Take 1 Take 1 Take 1 capsule by capsule by capsule by oral route oral route oral route as as as directed. directed. directed. ofloxacin ofloxacin No ofloxacin [facility] 0.3 % eye 0.3 % eye 0.3 % eye Medical drops drops drops omeprazole omeprazole No omeprazole [facility] 20 mg 20 mg 20 mg Medical capsule,del capsule,del capsule,de ayed ayed layed release release release omeprazole omeprazole No omeprazole [facility] 40 mg 40 mg 40 mg Medical capsule,del capsule,del capsule,de ayed ayed layed release release release ondansetron ondansetron No ondansetro [facility] 4 mg 4 mg n 4 mg Medical disintegrat disintegrat disintegra ing tablet ing tablet ting tablet pravastatin pravastatin No pravastati [facility] 10 mg 10 mg n 10 mg Medical tablet tablet tablet Restasis Restasis No Restasis April via 0.05 % eye 0.05 % eye 0.05 % eye Medical drops in a drops in a drops in a dropperette dropperette dropperett e Suprep Suprep No Suprep [facility] Bowel Prep Bowel Prep Bowel Prep Medical Kit 17.5 Kit 17.5 Kit 17.5 gram-3.13 gram-3.13 gram-3.13 gram-1.6 gram-1.6 gram-1.6 gram oral gram oral gram oral solution solution solution triamcinolo triamcinolo No triamcinol [facility] ne ne one Medical acetonide acetonide acetonide 0.1 % 0.1 % 0.1 % topical topical topical cream cream cream UltraFlora UltraFlora No UltraFlora [facility] Biome Pro - Biome Pro - Biome Pro Medical 90 Capsules 90 Capsules - 90 1 capsule 1 capsule Capsules 1 per day per day capsule Take 1 Take 1 per day capsule PO capsule PO Take 1 every day every day capsule PO as directed as directed every day as directed ursodiol ursodiol No ursodiol April via 300 mg 300 mg 300 mg Medical capsule capsule capsule Xiidra 5 % Xiidra 5 % No Xiidra 5 % [facility] eye drops eye drops eye drops Medical in a in a in a dropperette dropperette dropperett e Anucort-HC Anucort-HC No Anucort-HC [facility] 25 mg 25 mg 25 mg Medical suppository suppository suppositor y atorvastati atorvastati No atorvastat [facility] n 80 mg n 80 mg in 80 mg Medic al tablet tablet tablet calcipotrie calcipotrie No calcipotri [facility] ne 0.005 % ne 0.005 % janny 0.005 Medical topical topical % topical cream cream cream candesartan candesartan No candesarta [facility] 8 mg tablet 8 mg tablet n 8 mg Medical tablet cephalexin cephalexin No cephalexin [facility] 250 mg 250 mg 250 mg Medical capsule capsule capsule Take 1 Take 1 Take 1 capsule by capsule by capsule by oral route oral route oral route as as as directed. directed. directed. Fluzone Fluzone No Fluzone [facility] High-Dose High-Dose High-Dose Medical (PF) 180 (PF) 180 (PF) 180 mcg/0.5 mL mcg/0.5 mL mcg/0.5 mL intramuscul intramuscul intramuscu ar syringe ar syringe lar syringe Fluzone Fluzone No Fluzone [facility] High-Dose High-Dose High-Dose Medical Quad Quad Quad (PF) 240 (PF) 240 (PF) 240 mcg/0.7 mL mcg/0.7 mL mcg/0.7 mL IM syringe IM syringe IM syringe Januvia 100 Januvia 100 No Januvia [facility] mg tablet mg tablet 100 mg Med ical tablet Levoxyl 75 Levoxyl 75 No Levoxyl 75 [facility] mcg tablet mcg tablet mcg tablet Medical metformin metformin No metformin [facility] 1,000 mg 1,000 mg 1,000 mg Med ical tablet tablet tablet metoclopram metoclopram No metoclopra [facility] beltran 10 mg beltran 10 mg mide 10 mg Medical tablet tablet tablet nitrofurant nitrofurant No nitrofuran [facility] oin oin toin Medical monohydrate monohydrate monohydrat /macrocryst /macrocryst e/macrocry als 100 mg als 100 mg stals 100 capsule capsule mg capsule Take 1 Take 1 Take 1 capsule by capsule by capsule by oral route oral route oral route as as as directed. directed. directed. ofloxacin ofloxacin No ofloxacin [facility] 0.3 % eye 0.3 % eye 0.3 % eye Medical drops drops drops omeprazole omeprazole No omeprazole [facility] 20 mg 20 mg 20 mg Medical capsule,del capsule,del capsule,de ayed ayed layed release release release omeprazole omeprazole No omeprazole [facility] 40 mg 40 mg 40 mg Medical capsule,del capsule,del capsule,de ayed ayed layed release release release Restasis Restasis No Restasis April via 0.05 % eye 0.05 % eye 0.05 % eye Medical drops in a drops in a drops in a dropperette dropperette dropperett e Suprep Suprep No Suprep [facility] Bowel Prep Bowel Prep Bowel Prep Medical Kit 17.5 Kit 17.5 Kit 17.5 gram-3.13 gram-3.13 gram-3.13 gram-1.6 gram-1.6 gram-1.6 gram oral gram oral gram oral solution solution solution ursodiol ursodiol No ursodiol April via 300 mg 300 mg 300 mg Medical capsule capsule capsule Xiidra 5 % Xiidra 5 % No Xiidra 5 % [facility] eye drops eye drops eye drops Medical in a in a in a dropperette dropperette dropperett e Accu-Chek Accu-Chek No Accu-Chek [facility] Fastclix Fastclix Fastclix Med ical Lancet Drum Lancet Drum Lancet Drum accu-chek accu-chek No accu-chek [facility] guide me guide me guide me Med ical w/device w/device w/device kit kit kit Accu-Chek Accu-Chek No Accu-Chek [facility] Guide test Guide test Guide test Medical strips strips strips Anucort-HC Anucort-HC No Anucort-HC [facility] 25 mg 25 mg 25 mg Medical suppository suppository suppositor y atorvastati atorvastati No atorvastat [facility] n 80 mg n 80 mg in 80 mg Medic al tablet tablet tablet calcipotrie calcipotrie No calcipotri [facility] ne 0.005 % ne 0.005 % janny 0.005 Medical topical topical % topical cream cream cream candesartan candesartan No candesarta [facility] 4 mg tablet 4 mg tablet n 4 mg Medical tablet candesartan candesartan No candesarta [facility] 8 mg tablet 8 mg tablet n 8 mg Medical tablet cephalexin cephalexin No cephalexin [facility] 250 mg 250 mg 250 mg Medical capsule capsule capsule Take 1 Take 1 Take 1 capsule by capsule by capsule by oral route oral route oral route as as as directed. directed. directed. Fluzone Fluzone No Fluzone [facility] High-Dose High-Dose High-Dose Medical (PF) 180 (PF) 180 (PF) 180 mcg/0.5 mL mcg/0.5 mL mcg/0.5 mL intramuscul intramuscul intramuscu ar syringe ar syringe lar syringe Fluzone Fluzone No Fluzone [facility] High-Dose High-Dose High-Dose Medical Quad Quad Quad 2019- (PF) 240 (PF) 240 (PF) 240 mcg/0.7 mL mcg/0.7 mL mcg/0.7 mL IM syringe IM syringe IM syringe Januvia 100 Januvia 100 No Januvia [facility] mg tablet mg tablet 100 mg Med ical tablet Levoxyl 75 Levoxyl 75 No Levoxyl 75 [facility] mcg tablet mcg tablet mcg tablet Medical metformin metformin No metformin [facility] 1,000 mg 1,000 mg 1,000 mg Med ical tablet tablet tablet metoclopram metoclopram No metoclopra [facility] beltran 10 mg beltran 10 mg mide 10 mg Medical tablet tablet tablet naproxen naproxen No naproxen April via 500 mg 500 mg 500 mg Medical tablet tablet tablet nitrofurant nitrofurant No nitrofuran [facility] oin oin toin Medical monohydrate monohydrate monohydrat /macrocryst /macrocryst e/macrocry als 100 mg als 100 mg stals 100 capsule capsule mg capsule Take 1 Take 1 Take 1 capsule by capsule by capsule by oral route oral route oral route as as as directed. directed. directed. ofloxacin ofloxacin No ofloxacin [facility] 0.3 % eye 0.3 % eye 0.3 % eye Medical drops drops drops omeprazole omeprazole No omeprazole [facility] 20 mg 20 mg 20 mg Medical capsule,del capsule,del capsule,de ayed ayed layed release release release Immunizations Ordered Filled Immunization Date Status Comments Sourc e Immunization Name Name Influenza High Dose 2020-06-20 Completed [facility]00 [facility] Influenza High Dose 2020-06-20 Completed [facility]:00:00 [facility] Influenza High Dose 2020-06-20 Completed [facility] 00:00:00 [facility] Influenza High Dose 2020-06-20 Completed [facility] 00:00:00 [facility] Influenza High Dose 2020-06-20 Completed [facility] 00:00:00 [facility] Influenza High Dose 2020-06-20 Completed [facility] 00:00:00 [facility] Influenza High Dose 2020-06-20 Completed [facility] 00:00:00 [facility] Influenza High Dose 2020-06-20 Completed [facility] 00:00:00 [facility] Influenza High Dose 2020-06-20 Completed [facility] 00:00:00 [facility] Influenza High Dose 2020-06-20 Completed [facility] 00:00:00 [facility] Influenza High Dose 2020-06-20 Completed [facility] 00:00:00 [facility] Influenza High Dose 2020-06-20 Completed [facility] 00:00:00 [facility] Influenza High Dose 2020-06-20 Completed [facility] 00:00:00 [facility] Influenza High Dose 2020-06-20 Completed [facility] 00:00:00 [facility] Influenza High Dose 2020-06-20 Completed [facility] 00:00:00 [facility] Influenza High Dose 2020-06-20 Completed [facility] 00:00:00 [facility] Influenza High Dose 2020-06-20 Completed [facility] 00:00:00 [facility] Influenza High Dose 2020-06-20 Completed [facility] 00:00:00 [facility] Influenza High Dose 2020-06-20 Completed [facility] 00:00:00 [facility] TDAP 2014-08-10 Completed [facility] 00:00:00 [facility] Pneumococcal 2014-08-10 Completed University o f Polysaccharide, 00:00:00 [place] [facility] PPSV23 (PNEUMOVAX) Branch TDAP 2014-08-10 Completed [facility] 00:00:00 [facility] Pneumococcal 2014-08-10 Completed University o f Polysaccharide, 00:00:00 [place] [facility] PPSV23 (PNEUMOVAX) Branch TDAP 2014-08-10 Completed [facility] 00:00:00 [facility] Pneumococcal 2014-08-10 Completed University o f Polysaccharide, 00:00:00 [place] [facility] PPSV23 (PNEUMOVAX) Branch TDAP 2014-08-10 Completed [facility] 00:00:00 [facility] Pneumococcal 2014-08-10 Completed University o f Polysaccharide, 00:00:00 [place] [facility] ical PPSV23 (PNEUMOVAX) Branch TDAP 2014-08-10 Completed [facility] of 00:00:00 [facility] Pneumococcal 2014-08-10 Completed University o f Polysaccharide, 00:00:00 [place] [facility] PPSV23 (PNEUMOVAX) Branch TDAP 2014-08-10 Completed University of 00:00:00 [facility] Pneumococcal 2014-08-10 Completed University o f Polysaccharide, 00:00:00 [place] [facility] PPSV23 (PNEUMOVAX) Branch TDAP 2014-08-10 Completed University of 00:00:00 [facility] Pneumococcal 2014-08-10 Completed University o f Polysaccharide, 00:00:00 [place] [facility] PPSV23 (PNEUMOVAX) Branch TDAP 2014-08-10 Completed University of 00:00:00 [facility] Pneumococcal 2014-08-10 Completed University o f Polysaccharide, 00:00:00 [place] [facility] PPSV23 (PNEUMOVAX) Branch TDAP 2014-08-10 Completed University of 00:00:00 [facility] Pneumococcal 2014-08-10 Completed University o f Polysaccharide, 00:00:00 [place] [facility] PPSV23 (PNEUMOVAX) Branch TDAP 2014-08-10 Completed University of 00:00:00 [facility] Pneumococcal 2014-08-10 Completed University o f Polysaccharide, 00:00:00 [place] [facility] PPSV23 (PNEUMOVAX) Branch TDAP 2014-08-10 Completed [facility] of 00:00:00 [facility] Pneumococcal 2014-08-10 Completed University o f Polysaccharide, 00:00:00 [place] [facility] PPSV23 (PNEUMOVAX) Branch TDAP 2014-08-10 Completed University of 00:00:00 [facility] Pneumococcal 2014-08-10 Completed University o f Polysaccharide, 00:00:00 [place] [facility] PPSV23 (PNEUMOVAX) Branch TDAP 2014-08-10 Completed [facility] of 00:00:00 [facility] Pneumococcal 2014-08-10 Completed University o f Polysaccharide, 00:00:00 [place] [facility] PPSV23 (PNEUMOVAX) Branch TDAP 2014-08-10 Completed [facility] of 00:00:00 [facility] Pneumococcal 2014-08-10 Completed University o f Polysaccharide, 00:00:00 [place] [facility] PPSV23 (PNEUMOVAX) Branch TDAP 2014-08-10 Completed [facility] of 00:00:00 [facility] Pneumococcal 2014-08-10 Completed University o f Polysaccharide, 00:00:00 [place] [facility] PPSV23 (PNEUMOVAX) Branch TDAP 2014-08-10 Completed [facility] of 00:00:00 [facility] Pneumococcal 2014-08-10 Completed University o f Polysaccharide, 00:00:00 [place] [facility] PPSV23 (PNEUMOVAX) Branch TDAP 2014-08-10 Completed [facility] of 00:00:00 [facility] Pneumococcal 2014-08-10 Completed University o f Polysaccharide, 00:00:00 [place] [facility] PPSV23 (PNEUMOVAX) Branch TDAP 2014-08-10 Completed [facility] 00:00:00 [facility] Pneumococcal 2014-08-10 Completed [place] [facility] Polysaccharide, 00:00:00 [facility] ical PPSV23 (PNEUMOVAX) Branch TDAP 2014-08-10 Completed [facility] 00:00:00 [facility] Pneumococcal 2014-08-10 Completed [place] [facility] Polysaccharide, 00:00:00 [facility] ical PPSV23 (PNEUMOVAX) Branch Vital Signs Vital Name Observation Time Observation Value Comments Source Systolic blood 2022-07-18 19:32:00 120 mm[Hg[facility] Diastolic blood 2022-07-18 19:32:00 76 mm[Hg] Unive [facility] Heart rate 2022-07-18 19:26:00 68 /min Universi ty [facility] Body height 2022-07-18 19:26:00 154.9 cm [facility] Body weight 2022-07-18 19:26:00 68.811 kg Univers ty [facility] [place] BMI 2022-07-18 19:26:00 28.66 kg/m2 Universi ty [facility] [place] Oxygen saturation 2022-07-18 19:26:00 97 /min [facility] [place] in Arterial blood Medical Br anch by Pulse oximetry Systolic blood 2022-06-18 16:40:00 135 mm[facility]Hg[facility] 2022-06-18 16:40:00 84 mm[Hg] Unive [facility] Heart rate 2022-06-18 16:40:00 77 /min Universi ty [facility] [place] Body height 2022-06-18 16:40:00 154.9 cm [facility] Body weight 2022-06-18 16:40:00 [facility] [place] BMI 2022-06-18 16:40:00 28.63 kg/m2 Universi ty [facility] [place] Oxygen saturation 2022-06-18 16:40:00 97 /min [facility] [place] in Arterial blood Medical Br anch by Pulse oximetry BP Diastolic 2022-03-20 00:00:00 79 mm[Hg] Melisa Dobson edical Height 2022-03-20 00:00:00 60 [in_i] Melisa Dobson edical BMI (Body Mass 2022-03-20 00:00:00 29.3 kg/m2 [facility] Medical Index) BP Systolic 2022-03-20 00:00:00 119 mm[Hg] Melisa Dobson edical Body Weight 2022-03-20 00:00:00 150 [lb_av] Melisa Dobson edical Systolic blood 2022-02-25 18:37:00 129 mm[Hg] [facility] pressure [facility] Diastolic blood 2022-02-25 18:37:00 79 mm[Hg] [facility] Heart rate 2022-02-25 18:33:00 77 /min [facility] Body height 2022-02-25 18:33:00 154.9 cm [facility] Body weight 2022-02-25 18:33:00 70.67 kg [facility] BMI 2022-02-25 18:33:00 29.44 kg/m2 [facility] Oxygen saturation 2022-02-25 18:33:00 98 /min [facility] in Arterial blood Medical Br anch by Pulse oximetry BP Diastolic 2021-12-18 00:00:00 79 mm[Hg] Melisa Dobson edical Height 2021-12-18 00:00:00 60 [in_i] Melisa Dobson edical BMI (Body Mass 2021-12-18 00:00:00 29.3 kg/m2 [facility] Medical Index) BP Systolic 2021-12-18 00:00:00 119 mm[Hg] Melisa Dobson edical Body Weight 2021-12-18 00:00:00 150 [lb_av] Melisa Dobson edical BP Diastolic 2021-10-17 00:00:00 72 mm[Hg] Melisa Dobson edical Height 2021-10-17 00:00:00 60 [in_i] Melisa Dobson edical BMI (Body Mass 2021-10-17 00:00:00 29.3 kg/m2 [facility] Medical Index) BP Systolic 2021-10-17 00:00:00 127 mm[Hg] Melisa [facility]son edical Body Weight 2021-10-17 00:00:00 150 [lb_av] Melisa Dobson edical BP Diastolic 2021-09-27 00:00:00 69 mm[Hg] Melisa Dobson edical Height 2021-09-27 00:00:00 60 [in_i] Melisa Dobson edical BMI (Body Mass 2021-09-27 00:00:00 29.3 kg/m2 [facility] BP Systolic 2021-09-27 00:00:00 115 mm[Hg] Melisa Dobson edical Body Weight 2021-09-27 00:00:00 150 [lb_av] Melisa Dobson edical BP Diastolic 2020-11-22 00:00:00 81 mm[Hg] Melisa Dobson edical Height 2020-11-22 00:00:00 60 [in_i] Melisa Dobson edical BMI (Body Mass 2020-11-22 00:00:00 28.3 kg/m2 [facility] Medical Index) BP Systolic 2020-11-22 00:00:00 134 mm[Hg] Melisa Dobson edical Body Weight 2020-11-22 00:00:00 145 [lb_av] Melisa Dboson edical Procedures Procedure Date / Time Performing Clinician Source Performed US ABDOMEN LIMITED 2022-08-07 19:55:32 Nelida Bejarano [facility] PATIENT QUESTIONNAIRE 2022-06-27 06:01:00 Doctor Unassigned, [facility] [place] [facility] CONSENT/REFUSAL FOR 2022-06-18 16:05:40 Doctor Unasscielo, [facility] DIAGNOSIS AND TREATMENT [place] [facility] [place] Delivery [facility] Medical Cholecystectomy [facility] Medical (Gallbladder) Plan of Care Planned Activity Planned Date Details Comments Source Diagnostic Test 2022-03-20 00:00:00 urinalysis, dipstick [facility] Medical Pending [code = urinalysis, dipstick] Encounters Start End Encounter Admission Attending Care Care Encounter Source Date/Time Date/Time Type Type Clinicians Facility Department ID 2021-06-08 Outpatient PRABHAKAR BOX JYOTI [id number] Univers 09:08:25 [facility] 2021-06-07 Outpatient Yue REZA CTKORIN JYOTI [id number] Univers 23:54:22 [facility] 2022-08-07 2022-08-07 [facility] [id number] Univers 13:19:45 23:59:00 NELIDA song [facility] [place] 2022-08-07 2022-08-07 [facility] 1.2.840.114 [id number] Univers 13:19:45 23:59:00 Encounter Nelida HEATH 350.1.13.10 ity of [place] [id number] [address] 2022-07-28 2022-07-28 [facility] [id number] Univers 00:00:00 00:00:00 NELIDA song [facility] [place] 2022-07-18 2022-07-18 Acting Teacher Lab, Ang - Db [facility] 1.2.840.1 14 [id number] Univers 14:15:00 14:30:00 Visit Nelida Bejarano 350.1.13.10 ity of [place] 4.2.7.2.686 Shaquille as ALEX?BLEA [id number] [address] MEDICAL OFFICE [facility] 2022-07-18 2022-07-18 Outpatient R CARLEE [facility] [id number] Univers 13:30:00 14:12:26 NELIDA song [facility] [place] 2022-07-18 2022-07-18 Office [facility] 1.2.840.114 [id number] Univers 13:30:00 14:12:26 Visit Nelida HEALTH 350.1.13.10 it y of [place] 4.2.7.2.686 Shaquille as ALEX?BLEA [id number] [address] MEDICAL OFFICE [facility] 2022-06-30 2022-06-30 Refill Doctor [facility] 1.2.840.114 [id number] Univers 00:00:00 00:00:00 Unassigned, HEALTH 350.1.13.10 ity of [place] 4.2.7.2.686 Shaquille as ALEX?BLEA [phone] [address] MEDICAL OFFICE BUILDING 2022-06-27 2022-06-27 Orders Doctor VIVIAN 1.2.840.114 [id number] Univers 00:00:00 00:00:00 Only Unassigned, ANDERS 350.1.13.10 ity of [place] [facility] 4.2.7.2.686 Shaquille as [phone] [address] 2022-06-20 2022-06-20 Telephone Michelle [facility] 1.2.917.912 [id number] Univers 00:00:00 00:00:00 Esdras HEALTH 350.1.13.10 it y of [facility] 4.2.7.2.686 Shaquille as ALEX?BLEA [id number] [address] MEDICAL OFFICE [facility] 2022-06-19 2022-06-19 [facility]patient [facility] PRIV PRIV [id number] [facility] 00:00:00 00:00:00 _Deloris [id number] [facility] 2022-06-18 2022-06-18 Acting Teacher Lab, Ang - [facility] 1.2.840.1 14 [id number] Univers 12:15:00 12:30:00 Visit Esdras Martinez 350.1.13.10 ity of [place] 4.2.7.2.686 Shaquille as ALEX?BLEA [id number] [facility] [address] MEDICAL OFFICE [facility] 2022-06-18 2022-06-18 Outpatient R MICHELLE [facility] [id number] Univers 12:15:00 12:15:00 ESDRAS itdaren of [facility] 2022-06-18 2022-06-18 Office [facility] 1.2.840.114 [id number] Univers 10:30:00 11:03:35 Visit Esdras FOSTER 350.1.13.10 it y of [facility] 4.2.7.2.686 Shaquille as ALEX?BLEA [id number] [address] MEDICAL OFFICE [facility] 2022-06-18 2022-06-18 Orders Doctor [place]ARK 1.2.840.114 [id number] Univers 00:00:00 00:00:00 Only Unassigned, ANEDRS 350.1.13.10 ity of [facility] [facility] 4.2.7.2.686 Shaquille as [id number] [address] 2022-05-30 2022-05-30 Refill [facility] 1.2.840.114 [id number] Univers 00:00:00 00:00:00 Nelida HEALTH 350.1.13.10 it y of [place] 4.2.7.2.686 Shaquille as ALEX?BLEA [id number] [address] MEDICAL OFFICE [facility] 2022-04-16 2022-04-16 Outpatient [facility] [id number] Univers 13:19:48 23:59:00 JACOBY ity [facility] [place] 2022-04-16 2022-04-16 [facility] 1.2.834.174 [id number] Univers 13:19:48 23:59:00 Encounter Jacoby HEATH 350.1.13.10 [place] of [place] [facility] 4.2.7.2.686 [place] [facility] [id number] [address] 2022-03-30 2022-03-30 Refadia DumontNEW [facility]EX[facility] 1.2.840.114 [id number] Univers 00:00:00 00:00:00 Wondiful A HEALTH 350.1.13.10 ity of [place] 4.2.7.2.686 Shaquille as ALEX?BLEA [id number] [address] 2022-03-24 2022-03-24 Outpatient [facility] PRIV PRIV [id number] [facility] 00:00:00 00:00:00 _Deloris [id number] [facility] 2022-03-20 2022-03-20 Outpatient [facility] PRIV PRIV [id number] [facility] 00:00:00 00:00:00 _Deloris [id number] [facility] 2022-03-20 2022-03-20 Le PRIV [facility] [id number] [facility] 00:00:00 00:00:00 [facility] Medic [facility] MD jazmin: _[address], [address], [place] [address] , Ph. 2022-03-20 2022-03-20 Outpatient Robi [facility] [id number] 00:00:00 00:00:00 Le uribe [id number] Erika [id number] 2022-03-19 2022-03-19 [facility] PRIV PRIV [facility] [id number] [facility] 00:00:00 00:00:00 _Deloris [id number] [facility] 2022-02-28 2022-02-28 Acting Teacher Lab, [facility] 1.2.840.1 14 [id number] [facility] 08:00:00 08:15:00 Visit Roselia Bejaranoa HEALTH 350.1.13.10 ity of [place] 4.2.7.2.686 Shaquille as ALEX?BLEA [id number] [facility] [address] [facility] OFFICE [facility] 2022-02-28 2022-02-28 Outpatient Yue [facility] [id number] Univers 08:00:00 08:00:00 NELIDA ity [facility] [place] 2022-02-27 2022-02-27 Gerry DumontNEW [facility] 1.2.840.114 [id number] Univers 00:00:00 00:00:00 Wondiful A HEALTH 350.1.13.10 ity of [place] 4.2.7.2.686 Shaquille as ALEX?BLEA [id number] [facility] [address] [facility] OFFICE [facility] 2022-02-25 2022-02-25 Outpatient R CARLEE [facility] [id number] Univers 13:30:00 14:16:26 NELIDA ity [facility] [place] 2022-02-25 2022-02-25 Office [facility] 1.2.840.114 [id number] Univers 13:30:00 14:16:26 Visit Nelida HEALTH 350.1.13.10 it y of [place] 4.2.7.2.686 Shaquille as ALEX?BLEA [id number] [address] OFFICE [facility] 2022-02-25 2022-02-25 Outpatient R [facility] [id number] Univers 13:30:00 14:16:26 NELIDA ity [facility] [place] 2022-02-17 2022-02-17 [facility] 1.2.840.114 [id number] Univers 09:15:00 09:49:36 Visit [facility] 350.1.13.10 it [place] HEATH 4.2.7.2.686 Shaquille as ALEX?BLEA [id number] [facility] [address] [place] MEDICAL OFFICE [facility] 2022-02-17 2022-02-17 Outpatient R CAMPBELLALBERMARY BETH [facility] [id number] Univers 09:15:00 09:49:36 [facility] [place] 2022-02-17 2022-02-17 Outpatient R CAMPBELLALBERMARY B[facility]TR[facility]HE[facility] [id number] Univers 09:15:00 09:15:00 [facility] 2022-02-17 2022-02-17 Outpatient R NBAMARY BETH [facility] [id number] Univers 09:15:00 09:15:00 [facility] 2022-02-13 2022-02-13 Urgent Le Bro [facility] 1.2.840 .114 [id number] Univers 11:00:00 11:20:00 Alisha JohnsonK[facility] 350.1.13.10 ity [facility] 4.2.7.2.686 Shaquille as ALEX?BLEA [id number] [facility] [address] [place] MEDICAL OFFICE [facility] 2022-02-13 2022-02-13 Outpatient Yue [facility] [id number] Univers 11:00:00 11:00:00 [facility] 2021-12-24 2021-12-24 Gerry Dum[facility]NEW [facility] 1.2.840.114 [id number] Univers 00:00:00 00:00:00 Wondiful A HEALTH 350.1.13.10 ity of [place] 4.2.7.2.686 Shaquille as ALEX?BLEA [id number] Ny hayes [facility] [address] [place] MEDICAL OFFICE [facility] 2021-12-23 2021-12-23 Outpatient _SWHAWPR PRIV PRIV [id number] [facility] 00:00:00 00:00:00 _Deloris [id number] [facility] 2021-12-18 2021-12-18 Outpatient GC_SWHAWPRC PRIV PRIV [id number] [facility] 11:56:00 11:56:00 _Deloris [id number] [facility] 2021-12-18 2021-12-18 [facility]IV [facility] 11 [facility] 00:00:00 00:00:00 Eran DATA INTEGRATION DEVELOPER: Health - Med ical [address] [address], [place] [address] , Ph. 2021-12-18 2021-12-18 Outpatient SVETLANA Barillas PRIV [id number] 00:00:00 00:00:00 [id number] 2021-12-17 2021-12-17 Outpatient GC_SWHAWPRC PRIV PRIV [id number] [facility] 01:04:00 01:04:00 _Deloris [id number] [facility] 2021-10-27 2021-10-27 Outpatient Yue ELIZABETH [facility] [id number] Univers 15:20:00 15:22:30 ERIKA song [facility] [place] 2021-10-17 2021-10-17 Outpatient GC_SWHAWPRC PRIV PRIV [id number] [facility] 11:01:00 11:01:00 _Deloris [id number] [facility] 2021-10-17 2021-10-17 PRIV [facility] 10 [facility] 00:00:00 00:00:00 Eran DATA INTEGRATION DEVELOPER: Health - Med ical [address] [address], [place] [address] , Ph. 2021-10-17 2021-10-17 Outpatient SVETLANA Barillas PRIV [id number] 00:00:00 00:00:00 [id number] 2021-10-16 2021-10-16 Outpatient GC_SWHAWPRC PRIV PRIV [id number] [facility] 11:06:00 11:06:00 _Deloris [id number] [facility] 2021-09-27 2021-09-27 Outpatient [facility] [id number] [facility] 12:28:00 12:28:00 _Deloris [id number] [facility] 2021-09-27 2021-09-27 Outpatient SVETLANA Barillas [facility] [id number] 00:00:00 00:00:00 [id number] 2021-09-27 2021-09-27 PRIV [facility] 00:00:00 00:00:00 Eran DATA INTEGRATION DEVELOPER: Health - Med ical [address] [facility] Office [facility], [address], [place] [address] , Ph. 2021-09-26 2021-09-26 Outpatient [facility] [id number] [facility] 04:25:00 04:25:00 _Deloris [id number] [facility] 2021-09-19 2021-09-19 Gerry [facility] 1.2.840.114 [id number] Univers 00:00:00 00:00:00 Wondiful A HEALTH 350.1.13.10 ity of [place] 4.2.7.2.686 Shaquille as ALEX?BLEA [id number] [address] OFFICE [facility] 2021-08-28 2021-08-28 Prashanth DumontNEW [facility] 1.2.840.114 [id number] Univers 00:00:00 00:00:00 Management Wondiful A HEALTH 350.1.13.10 ity of [place] 4.2.7.2.686 Shaquille as ALEX?BLEA [id number] [address] OFFICE [facility] 2021-08-24 2021-08-24 Gerry DumontNEW [facility] 1.2.840.114 [id number] Univers 00:00:00 00:00:00 Wondiful A HEALTH 350.1.13.10 ity of [place] 4.2.7.2.686 Shaquille as PROFESSIO [id number] Ny hayes BRANNON [address] [place] OFFICE BUILDING ONE 2021-08-23 2021-08-23 Telephone Julia [facility] 1.2.840.114 [id number] Univers 00:00:00 00:00:00 Wondiful A HEALTH 350.1.13.10 ity of [place] 4.2.7.2.686 Shaquille as ALEX?BLEA [id number] Ny hayes LIN [address] [place] MEDICAL OFFICE BUILDING 2021-08-23 2021-08-23 Orders Doctor VIVIAN 1.2.840.114 [id number] Univers 00:00:00 00:00:00 Only Unassigned, ANDERS 350.1.13.10 ity of [place] [facility] 4.2.7.2.686 Shaquille as [id number] [address] 2021-08-20 2021-08-20 Acting Teacher Lab, Ang - Db [facility] 1.2.840.1 14 [id number] Univers 08:15:00 08:30:00 Visit Raymond Dumont Magalie HEALTH 350.1.13.1 0 ity of [place] 4.2.7.2.686 Shaquille as ALEX?BLEA [id number] Ny hayes LIN [address] [facility] OFFICE [facility] 2021-08-20 2021-08-20 Outpatient R [facility] [id number] Univers 08:15:00 08:15:00 ity of [facility] 2021-08-20 2021-08-20 Outpatient [facility] [id number] Univers 08:15:00 08:15:00 WONDIFUL ity o f [facility] 2021-08-19 2021-08-19 Outpatient R JULIA [facility] [id number] Univers 10:45:00 11:07:02 WONDIFUL ity o f [facility] 2021-08-19 2021-08-19 Office [facility] 1..840.114 [id number] Univers 10:45:00 11:07:02 Visit Wondiful A HEALTH 350.1.13.10 ity of [place] 4.2.7.2.686 Shaquille as ALEX?BLEA [id number] Ny hayes LIN [address] [place] MEDICAL OFFICE [facility] 2021-07-17 2021-07-17 Telephone [facility] 1.2.840.114 [id number] Univers 00:00:00 00:00:00 Wondiful A HEALTH 350.1.13.10 ity of [place] 4.2.7.2.686 Shaquille as ALEX?BLEA [id number] [address] MEDICAL OFFICE [facility] 2021-07-09 2021-07-09 Hospital [facility] 1.2.840.114 [id number] Univers 10:34:08 23:59:00 Encounter Nelida HEALTH 350.1.13.10 ity of [place] 4.2.7.2.686 Shaquille as ALEX?BLEA [id number] [facility] [address] [facility] OFFICE [facility] 2021-07-09 2021-07-09 Outpatient R [facility] [id number] Univers 09:30:00 10:32:14 NELIDA ity [facility] [place] 2021-07-09 2021-07-09 Outpatient R [facility] [id number] Univers 09:30:00 10:32:14 NELIDA ity [facility] [place] 2021-07-09 2021-07-09 Office [facility] 1.2.840.114 [id number] Univers 09:27:42 10:32:14 Visit Nelida HEALTH 350.1.13.10 it y of [facility] 4.2.7.2.686 Shaquille as ALEX?BLEA [id number] [address] OFFICE [facility] 2021-07-09 2021-07-09 Telephone [facility] 1.2.840.114 [id number] Univers 00:00:00 00:00:00 Wondiful A HEALTH 350.1.13.10 ity of [place] 4.2.7.2.686 Shaquille as ALEX?BLEA [id number] [address] MEDICAL OFFICE [facility] 2021-07-07 2021-07-07 Telephone VIVIAN Centeno 1.2.462.364 [id number] Univers 00:00:00 00:00:00 Shi ANDERS 350.1.13.10 it y of HOSPITAL 4.2.7.2.686 Shaquille as [id number] [address] 2021-07-07 2021-07-07 Nurse VIVIAN Hebert 1.2.840.114 [id number] Univers 00:00:00 00:00:00 Triage Edmund MCNAMARA 350.1.13.10 ity of [facility] 4.2.7.2.686 Shaquille as [id number] [address] 2021-07-07 2021-07-07 Telephone [facility] 1.2.840.114 [id number] Univers 00:00:00 00:00:00 Wondiful A [place] 350.1.13.10 ity of [place] 4.2.7.2.686 [place] PROFESSIO [id number] [facility] 044 [facility] 2021-07-06 2021-07-06 Laboratory Only, Ang Db Test [facility] 1.2.8 40.114 [id number] Univers 15:50:41 16:05:41 Only [facility] 350.1.13.10 ity of [place] 4.2.7.2.686 [place] as ALEX?BLEA [phone] [facility] [address] MEDICAL OFFICE BUILDING 2021-07-06 2021-07-06 [facility] [id number] Univers 16:00:00 16:00:00 GREG gomezy o f [facility] 2021-06-24 2021-06-24 [facility] 1.2.840.114 [id number] Univers 00:00:00 00:00:00 Wondiful A HEALTH 350.1.13.10 ity of [place] 4.2.7.2.686 [place]quille as ALEX?BLEA [phone] [place] [address] MEDICAL OFFICE BUILDING 2021-05-28 2021-05-28 Urgent [facility] 1.2.840.114 [id number] Univers 15:11:43 15:31:43 Care [facility] 350.1.13.10 i ty of [place] 4.2.7.2.686 [place] Alex?Blea [phone] [place] hayes lin 370 [facility] Office [facility] 2021-05-28 2021-05-28 Outpatient R LUCI [facility] [id number] Univers 15:20:00 15:20:00 GREG ity o f [facility] 2021-05-28 2021-05-28 Orders Doctor VIVIAN 1.2.840.114 [id number] Univers 00:00:00 00:00:00 Only Unassigned, ANDERS 350.1.13.10 ity of [facility] 4.2.7.2.686 Shaquille as [phone] [address] 2021-03-19 2021-03-19 Ref[facility] 1.2.840.114 [id number] Univers 00:00:00 00:00:00 Wondiful A Health 350.1.13.10 ity of [place] 4.2.7.2.686 Shaquille as Professio [phone] [address] Office [facility] 2021-03-18 2021-03-18 Refill [facility] 1.2.840.114 [id number] Univers 00:00:00 00:00:00 Wondiful A Health 350.1.13.10 [place]y of [place] 4.2.7.2.686 [place] as Professio [phone] [address] 2021-02-18 2021-02-18 Acting Teacher Lab, Adc Fam Pob I [facility] 1.2. 840.114 [id number] Univers 08:43:35 09:03:35 Visit Perry Dumontful A Health 350.1.13.1 0 [place]y of [place] 4.2.7.2.686 [place] as Professio [phone] [address] One 2021-02-18 2021-02-18 Outpatient R JULIA [facility] [id number] Univers 09:00:00 09:00:00 WONDIFUL ity o f [facility] 2021-02-15 2021-02-15 Office [facility] 1.2.840.114 [id number] Univers 10:25:57 11:22:38 Visit Wondiful Magalie [facility] 350.1.13.10 ity of [place] 4.2.7.2.686 Sha[place] as [facility] [phone] [address] Office Building One 2021-02-15 2021-02-15 [facility] [id number] Univers 10:30:00 10:30:00 WONDIFUL ity o f [facility] 2021-02-14 2021-02-14 [facility] 1.2.018.123 [id number] [facility] 09:52:18 23:59:00 Encounter Wondiful A [place] 350.1.13.10 ity of [place] 4.2.7.2.686 [place] [facility] [phone] [facility] [address] 2021-02-14 2021-02-14 Outpatient Yue [facility] [id number] Univers 10:20:00 10:20:00 WONDIFUL ity o [facility] 2021-01-15 2021-01-15 Orders Doctor VIVIAN Cooney2.840.114 [id number] Univers 00:00:00 00:00:00 Only Unassigned, ANDERS 350.1.13.10 ity of [facility] 4.2.7.2.686 Shaquille as [phone] [address] 2021-01-11 2021-01-11 Orders Doctor VIVIAN Latif.2.840.114 [id number] Univers 00:00:00 00:00:00 Only Unassigned, ANDERS 350.1.13.10 ity of [facility] 4.2.7.2.686 [place] as [phone] [address] 2021-01-09 2021-01-09 Outpatient Yue [facility] [id number] Univers 14:00:00 14:00:00 QIACURTJUN ity o f [facility] 2021-01-09 2021-01-09 Orders Doctor VIVIAN Cooney2.840.114 [id number] Univers 00:00:00 00:00:00 Only Unassigned, ANDERS 350.1.13.10 ity of [facility] 4.2.7.2.686 Shaqu[place] as [phone] [facility] [address] 2021-01-08 2021-01-08 Office [facility] 1.2.123.292 [id number] Univers 14:00:56 14:56:47 Visit Anabell Kumar 350.1.13.10 i ty of [place] 4.2.7.2.686 [place] Professio [phone] [facility] 188 [facility] 2021-01-08 2021-01-08 Outpatient R JOHN [facility] [id number] Univers 14:00:00 14:00:00 ANABELL nohemi [facility] [place] 2021-01-02 2021-01-02 Telephone [facility] 1.2.563.800 [id number] Univers 00:00:00 00:00:00 Keira Heath 350.1.13.10 ity of [place].2.7.2.686 [place] Professio [phone] [facility] 2021-01-01 2021-01-01 Hospital [facility] 1.2.840.114 [id number] Univers 12:37:46 23:59:00 Encounter Keira A Kumar 350.1.13.10 ity of [place] 4.2.7.2.686 [place] [phone] [facility] [address] 2021-01-01 2021-01-01 Outpatient [facility] [id number] Univers 00:00:00 00:00:00 KEIRA song [facility] [place] 2020-12-26 2020-12-26 Office [facility] 1.2.840.114 [id number] Univers 08:42:53 09:24:51 Visit Keira Heath 350.1.13.10 ity of [place] 4.2.7.2.686 [place] Professio [phone] [facility] 204 [facility] 2020-12-26 2020-12-26 Outpatient R [facility] [id number] Univers 08:30:00 08:30:00 KEIRA song [facility] [place] 2020-12-19 2020-12-19 Telephone [place], [facility] 1.2.840.114 [id number] Univers 00:00:00 00:00:00 Wondiful A Health 350.1.13.10 ity of [place] 4.2.7.2.686 Shaquille as Professio [phone] [facility] 044 [facility] One 2020-12-18 2020-12-18 Office FuadNEW [facility] 1.2.840.114 [id number] Univers 14:58:43 15:28:40 Visit Sigridcutrelbert Heath 350.1.13.10 ity of [place] 4.2.7.2.686 [place] Profess[place] [phone] [facility] amarilys 059 [facility] 2020-12-18 2020-12-18 Outpatient R FUAD [facility] [id number] Univers 15:00:00 15:00:00 DAVE gomezy o f [facility] 2020-12-12 2020-12-12 Case [facility] 1.2.840.114 [id number] Univers 00:00:00 00:00:00 Management Wondiful A Health 350.1.13.10 ity of [place] 4.2.7.2.686 [place] as Professio [phone] [address] One 2020-12-06 2020-12-06 Acting Teacher Lab, [facility] Fam Pob I [facility] 1.2. 840.114 [id number] Univers 14:56:08 15:16:08 Visit Julia [facility] 350.1.13.1 0 ity of [place] 4.2.7.2.686 [place] as Professio [phone] Ny maria dle rosarioal nal [address] [place] [address] Office [facility] 2020-12-06 2020-12-06 Office Julia [facility] 1.2.840.114 [id number] Univers 13:43:09 14:59:04 Visit Dmitriydiful A Health 350.1.13.10 ity of [place] 4.2.7.2.686 [place] as Professio [phone] [address] Office [facility] 2020-12-06 2020-12-06 Outpatient R JULIA [facility] [id number] Univers 14:00:00 14:00:00 WONDIFUL ity o f [facility] 2020-11-26 2020-11-26 Outpatient _PSYCHIATRIC PRIV PRIV 196 [id number] [facility] 11:17:00 11:17:00 _Deloris [id number] [facility] 2020-11-22 2020-11-22 Outpatient _PSYCHIATRIC PRIV PRIV 196 [id number] [facility] 01:03:00 01:03:00 _Deloris [id number] [facility] 2020-11-22 2020-11-22 Outpatient [facility] PRIV PRIV 18c [id number] 00:00:00 00:00:00 Le uribe [id number] [place] [id number] 2020-11-22 2020-11-22 Le PRIV [facility] [id number] [facility] 00:00:00 00:00:00 [facility]_PSYCHIATRIC MD jazmin: _[address], [address], [place] [address] , Ph. 2020-11-13 2020-11-13 Outpatient Yue LUCI [facility] [id number] Univers 11:30:00 11:30:00 GREG song o f [facility] 2020-11-03 2020-11-03 Prashanth DumontNEW [facility] 1.2.840.114 [id number] Univers 00:00:00 00:00:00 Management Wondiful A Health 350.1.13.10 ity of [place] 4.2.7.2.686 [place] as Professio [phone] [address] Office Building One 2020-11-01 2020-11-01 Orders Doctor VIVIAN 1.2.840.114 [id number] Univers 00:00:00 00:00:00 Only Unassigned, ANDERS 350.1.13.10 ity of [place] [facility] 4.2.7.2.686 Shaquille as [phone] [place] [address] [address] 2020-10-30 2020-10-30 Patient Edison [facility] 1.2.840.114 [id number] Univers 00:00:00 00:00:00 Outreach Terence PRIMARY 350.1.13.10 i ty of [facility] 4.2.7.2.686 [place] [facility] [phone] Ny dical [address] 2020-10-29 2020-10-29 Hospital Julia [facility] 1.2.127.486 [id number] Univers 13:45:00 23:59:00 Encounter Wondiful A [place] 350.1.13.10 ity of [place] 4.2.7.2.686 [place] [phone] [facility] [address] 2020-10-29 2020-10-29 Outpatient [facility] [id number] Univers 00:00:00 00:00:00 WONDIFUL ity o f [facility] 2020-10-29 2020-10-29 Orders Doctor VIVIAN 1.2.840.114 [id number] Univers 00:00:00 00:00:00 Only Unassigned, ANDERS 350.1.13.10 ity of [facility] 4.2.7.2.686 Shaquille as [phone] [facility] [address] 2020-10-24 2020-10-24 Case [facility] 1.2.840.114 [id number] Univers 00:00:00 00:00:00 Management Wondiful A Health 350.1.13.10 ity of [place] 4.2.7.2.686 [place] as Professio [phone] [facility] nal [address] Office Building One 2020-10-17 2020-10-17 Outpatient R JULIA [facility] [id number] Univers 10:00:00 10:00:00 WONDIFUL ity o f [facility] 2020-10-17 2020-10-17 Acting Teacher Lab, Gerhard Patel I [facility] 1.2. 840.114 [id number] Univers 09:01:10 09:21:10 Visit Julia [facility] 350.1.13.1 0 ity of [place] 4.2.7.2.686 Shaqu[place] as Professio [phone] Ny dical nal [address] Office Building One 2020-10-16 2020-10-16 Office [facility] 1.2.840.114 [id number] Univers 09:57:20 11:07:07 Visit Wondiful A Health 350.1.13.10 ity of [place] 4.2.7.2.686 Shaquille as Professio [phone] Ny dical nal [address] Office Building One 2020-10-16 2020-10-16 Outpatient R JULIA [facility] [id number] 6069 [facility] 10:00:00 10:00:00 WONDIFUL ity o f [facility] 2020-07-18 2020-07-18 [facility] 1.2.358.135 [id number] 07:29:00 10:20:00 Encounter Milo A [place] 350.1.13.10 [place] 4.2.7.2.686 Surgical [phone] [place] [address] 2020-07-18 2020-07-18 [facility] 1.2.006.279 [id number] [facility] 07:29:00 10:20:00 Encounter Milo A [place] 350.1.13.10 ity of [place] 4.2.7.2.686 [place] Surgical [phone] [address] 2020-07-18 2020-07-18 Anesthesia Javon Silver [facility] 1.2.840.11 [id number] 09:08:00 09:51:00 Carin Grubbs [place] 350.1.13.10 [place] 4.2.7.2.686 Surgical [id number] [place] [address] 2020-07-18 2020-07-18 Anesthesia Javon Silver [facility] 1.2.840.11 [id number] [facility] 09:08:00 09:51:00 Carin Grubbs [place] 350.1.13.10 ity of [place] 4.2.7.2.686 [place] [phone] [address] 2020-07-17 2020-07-17 Laboratory Only, [facility] 1.2.840.114 [id number] 10:28:07 10:43:07 Only Test [place] 350.1.13.10 [place] 4.2.7.2.686 [place] [phone] 353 2020-07-17 2020-07-17 Laboratory Only, [facility] Test [facility] 1.2.840. 114 [id number] Univers 10:28:07 10:43:07 Only Milo Reza Kumar 350.1.13.1 0 ity of [place] 4.2.7.2.686 [place] [phone] [address] 2020-07-17 2020-07-17 Outpatient R [facility] [id number] Univers 10:30:00 10:30:00 MILO song [facility] [place] 2020-07-17 2020-07-17 Orders Doctor VIVIAN 1.2.840.114 [id number] 00:00:00 00:00:00 Only Unassigned, ANDERS 350.1.13.10 [facility] 4.2.7.2.686 [id number] 009 2020-07-17 2020-07-17 Orders Doctor PARK 1.2.840.114 [id number] Univers 00:00:00 00:00:00 Only Unassigned, ANDERS 350.1.13.10 ity of [facility] 4.2.7.2.686 Shaquille as [phone] [address] 2020-05-30 2020-05-30 [facility] 1.2.802.910 [id number] 06:30:00 08:45:00 Encounter Milo Heath 350.1.13.10 [place] 4.2.7.2.686 Surgical [phone] [place] [address] 2020-05-30 2020-05-30 [facility] 1.2.925.225 [id number] [facility] 06:30:00 08:45:00 Encounter Milo Magalie Kumar 350.1.13.10 ity of [place] 4.2.7.2.686 [place] Surgical [phone] Med ical [address] 2020-05-29 2020-05-29 Laboratory Only, [facility] 1.2.840.114 [id number] 09:36:09 09:51:09 Only Test [place] 350.1.13.10 [place] 4.2.7.2.686 [place] [phone] [facility] 2020-05-29 2020-05-29 Laboratory Only, Adc Test [facility] 1.2.840. 114 [id number] Univers 09:36:09 09:51:09 Only Milo Reza 350.1.13.1 0 ity of [place] 4.2.7.2.686 [facility] [phone] [address] 2020-05-29 2020-05-29 Outpatient R LIBRADO [facility] [id number] [facility] 09:15:00 09:15:00 MILO [facility] 2020-05-29 2020-05-29 Orders Doctor PARK 1.2.840.114 [id number] 00:00:00 00:00:00 Only Unassigned, ANDERS 350.1.13.10 [facility] 4.2.7.2.686 [id number] 009 2020-05-29 2020-05-29 Orders Doctor PARK 1.2.840.114 [id number] [facility] 00:00:00 00:00:00 Only Unassigned, ANDERS 350.1.13.10 ity of [facility] 4.2.7.2.686 Shaquille [phone] [address] 2020-05-21 2020-05-21 Acting Teacher 1, Adc Lab [facility] 1.2.840.114 [id number] 10:32:27 10:47:27 Visit [place] 350.1.13.10 [place] 4.2.7.2.686 [place] [phone] [facility] 2020-05-21 2020-05-21 Acting Teacher 1, Adc Lab [facility] 1.2.840.114 [id number] [facility] 10:32:27 10:47:27 Visit Milo Reza 350.1.13.1 0 ity of [place] 4.2.7.2.686 [facility] [phone] [address] 2020-05-21 2020-05-21 Outpatient R LIBRADO [facility] [id number] [facility] 10:30:00 10:30:00 MILO [facility] Results Test Description Test Time Test Comments Results Result Comments Source Urinalysis macro (dipstick) panel - Urine 2022-03-20 12:24:3 3 Test Item Value Reference Range Interpretation Comme nts Leukocytes (test code = Leukocytes) Negative Nitrite (test code = Nitrite) negative Protein (test code = Protein) Negative pH (test code = pH) 5.0 Blood (test code = Blood) Negative Ketone (test code = Ketone) Negative Glucose (test code = Glucose) Negative Appearance (test code = Appearance) Clear Color (test code = Color) Yellow [facility] MedicalUrinalysis macro (dipstick) panel - [id number] 10:38:44 Test Item Value Reference Range Interpretation Comments Leukocytes (test code = Leukocytes) Negative Nitrite (test code = Nitrite) negative Protein (test code = Protein) Negative pH (test code = pH) 6.0 Blood (test code = Blood) Negative Ketone (test code = Ketone) Negative Glucose (test code = Glucose) Negative Appearance (test code = Appearance) Clear Color (test code = Color) Yellow [facility] MedicalBacteria identified in Urine by [id number] 00:00:00 Test Item Value Reference Range Interpretation Comments Bacteria identified in Urine by no growth no growth Culture (test code = 630-4) [facility] MedicalUrinalysis macro (dipstick) panel - [id number] 00:00:00 Test Item Value Reference Range Interpretation Comments Specific gravity of Urine 1.007 1.003-1.030 (test code = 2965-2) pH of Urine (test code = 7.0 5.0-8.0 2756-5) Protein [Presence] in Urine by negative negative Test strip (test code = 57977-4) Glucose [Presence] in Urine by negative negative Test strip (test code = 29745-3) Ketones [Presence] in Urine by negative negative Test strip (test code = 2514-8) Urobilinogen [Units/volume] in 0.2 mg/dL 0.2-1.0 Urine by Test strip (test code = 47514-5) Bilirubin.total [Presence] in negative negative Urine by Test strip (test code = 5770-3) Hemoglobin [Presence] in Urine negative negative by Test strip (test code = 5794-3) Nitrite [Presence] in Urine by negative negative Test strip (test code = 5802-4) Crystals [type] in Urine none none sediment by Light microscopy (test code = 5782-8) Leukocytes [#/area] in Urine 0-4 0-4 sediment by Microscopy high power field (test code = 5821-4) Erythrocytes [#/area] in Urine none seen none seen sediment by Microscopy high power field (test code = 93385-4) RBC casts [Presence] in Urine none seen 0-1 sediment by Light microscopy (test code = 98125-6) Hyaline casts [Presence] in 0-4 0-4 Urine sediment by Light microscopy (test code = 89447-3) Epithelial cells [Presence] in none none-few Urine sediment by Light microscopy (test code = 67083-1) Granular casts [Presence] in none seen 0-1 Urine sediment by Light microscopy (test code = 95439-4) Bacteria [Presence] in Urine none none-few sediment by Light microscopy (test code = 68669-6) Leukocyte esterase [Presence] negative negative in Urine by Test strip (test code = 5799-2) Color of Urine (test code = yellow yellow, straw, claire 5778-6) Character of Urine (test code clear clear = 63607-0) Status [facility] MedicalUrinalysis macro (dipstick) panel - [id number] 10:58:41 Test Item Value Reference Range Interpretation Comments Leukocytes (test code = Leukocytes) Negative Nitrite (test code = Nitrite) negative Protein (test code = Protein) Negative pH (test code = pH) 6.0 Blood (test code = Blood) Negative Ketone (test code = Ketone) Negative Glucose (test code = Glucose) Negative Appearance (test code = Appearance) Clear Color (test code = Color) Yellow [facility] MedicalUrinalysis macro (dipstick) panel - [id number] 10:58:41 Test Item Value Reference Range Interpretation Comments Leukocytes (test code = Leukocytes) Negative Nitrite (test code = Nitrite) negative Protein (test code = Protein) Negative pH (test code = pH) 6.0 Blood (test code = Blood) Negative Ketone (test code = Ketone) Negative Glucose (test code = Glucose) Negative Appearance (test code = Appearance) Clear Color (test code = Color) Yellow [facility] [id number] 12:36:00 Test Item Value Reference Range Interpretation Comments POC-GLUCOSE METER 115 mg/dL 70-110 H TESTED AT [place] [address] ([facility]) (test code = ERIN [place] 1538) [address] POCT-GLUCOSE [id number] 08:07:00 Test Item Value Reference Range Interpretation Comments POC-GLUCOSE METER 131 mg/dL 70-110 H TESTED AT [place] [address] ([facility]) (test code = ERIN [place] 1538) [address] POCT-GLUCOSE [id number] 19:50:00 Test Item Value Reference Range Interpretation Comments POC-GLUCOSE METER 134 mg/dL 70-110 H TESTED AT [place] [address] ([facility]) (test code = ERIN Turner [facility] 1538) [address] POCT-GLUCOSE [id number] 17:02:00 Test Item Value Reference Range Interpretation Comments POC-GLUCOSE METER 137 mg/dL 70-110 H TESTED AT [place] [address] ([facility]) (test [facility] = [facility] 1538) [address] POCT-GLUCOSE [id number] 12:00:00 Test Item Value Reference Range Interpretation Comments POC-GLUCOSE METER 109 mg/dL 70-110 TESTED AT [place] [address] ([facility]) (test code = [facility] Yue [facility] 1538) [address] SEDIMENTATION [id number] 10:11:00 Test Item Value Reference Range Interpretation Comments SEDIMENTATION RATE, ERYTHROCYTE 19 mm/HR 0-40 ([facility]) (test code = 766) HEMOGLOBIN [id number] 09:54:00 Test Item Value Reference Range Interpretation Comments HEMOGLOBIN A1C ([facility]) (test code = 6.6 % 4.3-6.1 H 368) POCT-GLUCOSE [id number] 08:44:00 Test Item Value Reference Range Interpretation Comments POC-GLUCOSE METER 93 mg/dL 70-110 TESTED AT [place] [address] ([facility]) (test code = [facility] Yue [facility] [address] 1538) POCT-GLUCOSE [id number] 06:19:00 Test Item Value Reference Range Interpretation Comments POC-GLUCOSE METER 104 mg/dL 70-110 TESTED AT [place] [address] ([facility]) (test code = [facility] Yue [facility] 1538) [address] [id number] 05:48:00 Test Item Value Reference Range Interpretation Comments THYROID STIMULATING HORMONE 1.61 uIU/mL 0.35-4.94 (BEAKER) (test code = 772) VITAMIN [id number] 05:48:00 Test Item Value Reference Range Interpretation Comments VITAMIN B12 (BEAKER) (test code = 537 pg/mL 213-816 774) LIPID [id number] 05:27:00 Test Item Value Reference Range Interpretation Comments TRIGLYCERIDES (BEAKER) (test code = 69 mg/dL 540) CHOLESTEROL (BEAKER) (test code = 104 mg/dL 631) HDL CHOLESTEROL (BEAKER) (test code 44 mg/dL = 976) LDL CHOLESTEROL CALCULATED (BEAKER) 46 mg/dL (test code = 633) Triglyceride Reference Range: Low Risk <150 Borderline 150-199 High Risk 200-499 Very High Risk >=500Cholesterol Reference Range: Low Risk <200 Borderline 200-239 High Risk >240HDL Cholesterol Reference Range: Low Risk >=60 High Risk <40LDL Cholesterol Reference Range: Optimal <100 Near Optimal 100-129 Borderline 130-159 High 160-189 Very High >=190 FastingBASIC METABOLIC [id number] 05:27:00 Test Item Value Reference Range Interpretation Comments SODIUM (BEAKER) 140 meq/L 136-145 (test code = 381) POTASSIUM (BEAKER) 4.0 meq/L 3.5-5.1 (test code = 379) CHLORIDE (BEAKER) 108 meq/L 98-107 H (test code = 382) CO2 (BEAKER) (test 23 meq/L 22-29 code = 355) BLOOD UREA NITROGEN 15 mg/dL 7-21 (BEAKER) (test code = 354) CREATININE (BEAKER) 0.71 mg/dL 0.57-1.25 (test code = 358) GLUCOSE RANDOM 131 mg/dL 70-105 H (BEAKER) (test code = 652) CALCIUM (BEAKER) 8.8 mg/dL 8.4-10.2 (test code = 697) EGFR (BEAKER) (test 82 mL/min/1.73 ESTIMA IVAN GFR IS code = 1092) sq m NOT ACCURATE CREATININE CLEARANCE IN PREDICTING GLOMERULAR FILTRATION RATE . ESTIMATED GFR I S NOT APPLICABLE FOR DIALYSIS PATIEN TS. FastingCBC W/PLT COUNT & AUTO [id number] 05:16:00 Test Item Value Reference Range Interpretation Comments WHITE BLOOD CELL COUNT (BEAKER) 7.1 K/ L 4.0-10.0 (test code = 775) RED BLOOD CELL COUNT (BEAKER) 3.96 M/ L 4.00-5.00 L (test code = 761) HEMOGLOBIN (BEAKER) (test code = 11.1 GM/DL 12.0-15.0 L 410) HEMATOCRIT (BEAKER) (test code = 33.7 % 36.0-45.0 L 411) MEAN CORPUSCULAR VOLUME (BEAKER) 85.2 fL 82.0-99.0 (test code = 753) MEAN CORPUSCULAR HEMOGLOBIN 28.0 pg 27.0-33.0 (BEAKER) (test code = 751) MEAN CORPUSCULAR HEMOGLOBIN CONC 32.9 GM/DL 32.0-36.0 (BEAKER) (test code = 752) RED CELL DISTRIBUTION WIDTH 14.6 % 10.3-14.2 H (BEAKER) (test code = 412) PLATELET COUNT (BEAKER) (test 221 K/CU MM 150-430 code = 756) MEAN PLATELET VOLUME (BEAKER) 8.3 fL 6.5-10.5 (test code = 754) NUCLEATED RED BLOOD CELLS 0 /100 WBC 0-0 (BEAKER) (test code = 413) NEUTROPHILS RELATIVE PERCENT 67 % (BEAKER) (test code = 429) LYMPHOCYTES RELATIVE PERCENT 23 % (BEAKER) (test code = 430) MONOCYTES RELATIVE PERCENT 9 % (BEAKER) (test code = 431) EOSINOPHILS RELATIVE PERCENT 2 % (BEAKER) (test code = 432) BASOPHILS RELATIVE PERCENT 1 % (BEAKER) (test code = 437) NEUTROPHILS ABSOLUTE COUNT 4.73 K/ L 1.80-8.00 (BEAKER) (test code = 670) LYMPHOCYTES ABSOLUTE COUNT 1.60 K/ L 1.48-4.50 (BEAKER) (test code = 414) MONOCYTES ABSOLUTE COUNT (BEAKER) 0.62 K/ L 0.00-1.30 (test code = 415) EOSINOPHILS ABSOLUTE COUNT 0.11 K/ L 0.00-0.50 (BEAKER) (test code = 416) BASOPHILS ABSOLUTE COUNT (BEAKER) 0.04 K/ L 0.00-0.20 (test code = 417) 0.00
[2022-08-16 20:07] LABS: Absolute Lymphocytes (CBC) 1.8 K/uL (0.7-4.9); Hematocrit 37.3 % (36.0-45.0); Lymphocytes % 19.3 % (15.3-44.8); MCV 85.5 fL (80-100); MPV 8.4 fL (7.6-11.3); RBC Red Blood Cell Count 4.36 M/uL (3.86-4.86)
[2022-08-16 20:26] LABS: Albumin 3.8 g/dL (3.4-5.0); Bilirubin Total 0.6 mg/dL (0.2-1.0); Magnesium 2.3 mg/dL (1.6-2.4); Potassium 3.8 mmol/L (3.5-5.1); Protein, Total 7.3 g/dL (6.4-8.2); Troponin High Sensitivity 7.4 pg/mL (<58.9)
[2022-08-16 21:04] LABS: Urine Blood Negative (Negative); Urine Glucose Negative (Negative); Urine Protein Negative (Negative); Urine pH 6.5 (5.0-7.0)
--- NOTE | 2022-08-16 21:35 | RAD REPORT ---
EXAM DESCRIPTION: CTAbdomen Pelvis W Contrast - 08/16/2022 9:20 pm CLINICAL HISTORY: RUQ, R flank pain radiating to R shoulder COMPARISON: Abdomen Pelvis Wo Contrast dated 12/18/2020 TECHNIQUE: CT of the abdomen and pelvis was performed. All CT scans are performed using dose optimization technique as appropriate and may include automated exposure control or mA/KV adjustment according to patient size. FINDINGS: Lower chest: Mild circumferential thickened distal esophagus. Liver: Hepatic steatosis. Biliary: Cholecystectomy Stomach: No significant focal abnormality. Duodenum: No significant focal abnormality. Pancreas: No significant abnormality. Spleen: Benign splenic lesion which is unchanged from prior. Adrenal: No suspicious lesions. Kidney/ureter: No hydronephrosis. No renal calculi. Too small to characterize and/or benign appearing renal lesions are noted. Retroperitoneum: No retroperitoneal adenopathy. Vascular: No aneurysm. Bowel: No significant focal abnormality. Normal appendix. Formed stool in the distal small bowel sugg ests slow transit. Peritoneum: No ascites or free air. Small fat containing inguinal hernias. Lipoma in the right latera l abdominal wall musculature. Bladder: Grossly unremarkable. Reproductive: No adnexal masses. A pessary is present. Bones: No acute fracture. Other: n/a IMPRESSION: No acute intra-abdominal or pelvic finding. Incidental findings as noted above.
[2022-08-16 21:38] LABS: Urine Bacteria None Seen /HPF (<20); Urine RBC <5 /HPF (None Seen); Urine WBC Clump Rare /HPF (None Seen)
--- NOTE | 2022-08-16 21:44 | RAD REPORT ---
EXAM DESCRIPTION: RAD - Chest Single View - 08/16/2022 9:32 pm CLINICAL HISTORY: PAIN COMPARISON: Chest Pa And Lat (2 Views) dated 08/11/2018; Chest Single View dated 05/18/2018; Chest Sing le View dated 07/25/2017; Chest Single View dated 11/08/2016 FINDINGS: Lines: None. Lungs: No evidence of edema or pneumonia. Pleural: No significant pleural effusions or pneumothorax. Cardiac: The heart size is within normal limits. Mediastinum: Within normal limits. Bones: No acute fractures. Other: None IMPRESSION: No acute cardiopulmonary disease.
--- NOTE | 2022-08-16 23:17 | ER ---
Nurse's Notes [facility] Name: Erin Robledo Age: 76 yrs Sex: Female : 1945 Arrival Date: 08/16/2022 Time: 18:24 Bed 23 Private MD: Diagnosis: Right rib pain;Right flank pain;Right shoulder blade pain;Lipoma of right lateral abdominal wall Presentation: 08/16 18:50 Chief complaint: Patient states: Right shoulder, right side of rib and right flank pain vg1 x 1 month. Went to [facility] and was dx with "Moderate grade 2 hepatic steatosis" States right side pain is beginning to ache more. Coronavirus screen: Vaccine status: Patient reports being unvaccinated. Client denies travel out of the [place] in the last 14 days. Ebola Screen: Patient negative for fever greater than or equal to 101.5 degrees Fahrenheit, and additional compatible Ebola Virus Disease symptoms. Initial Sepsis Screen: Does the patient meet any 2 criteria? No. Patient's initial sepsis screen is negative. Does the patient have a suspected source of infection? No. Patient's initial sepsis screen is negative. Risk Assessment: Do you want to hurt yourself or someone else? Patient reports no desire to harm self or others. Onset of symptoms was July 2022. 18:50 Method Of Arrival: Ambulatory vg1 18:50 Acuity: COLTON 3 vg1 Triage Assessment: 18:52 General: Appears uncomfortable, Behavior is calm, cooperative. Pain: Complains of pain vg1 in back, right shoulder, right flank Pain currently is 5 out of 10 on a pain scale. Quality of pain is described as aching. GI: Abdomen is round non-distended, Patient currently denies diarrhea, nausea, vomiting. Historical: - Allergies: 18:52 No Known Allergies; vg1 - Home Meds: 18:52 Synthroid 75 mcg Oral tab 1 tab once daily [Active]; candesartan oral [Active]; Januvia vg1 oral [Active]; - PMHx: 18:52 Anemia; Diabetes - NIDDM; High Cholesterol; Hypertension; Hypothyroidism; TIA; vg1 - PSHx: 18:52 section; Cholecystectomy; vg1 - Immunization history:: Client reports having NOT received the Covid vaccine. - Social history:: Smoking status: Patient denies any tobacco usage or history of. Screenin:33 [facility] ED Fall Risk Assessment (Adult) History of falling in the last 3 months, fu including since admission No falls in past 3 months (0 pts). Abuse screen: Denies threats or abuse. Nutritional screening: No deficits noted. Tuberculosis screening: No symptoms or risk factors identified. Assessment: 19:31 General: Appears in no apparent distress. Behavior is calm, cooperative, appropriate fu for age, Denies fever, chills. Pain: Complains of pain in right neck, right flank Pain does not radiate. Pain currently is 4 out of 10 on a pain scale. Neuro: Level of Consciousness is awake, alert, obeys commands, Oriented to person, place, time, situation, Moves all extremities. Gait is steady, Speech is normal, Facial symmetry appears normal. Respiratory: Respiratory effort is even, unlabored, Respiratory pattern is regular. GI: Patient currently denies abdominal pain, diarrhea, vomiting. : Denies burning with urination, urinary frequency, urgency. Derm: Skin is intact. 20:00 Reassessment: No changes from previously documented assessment. Patient and/or family fu updated on plan of care and expected duration. Pain level reassessed. Patient is alert, oriented x 3, equal unlabored respirations, skin warm/dry/pink. 21:00 Reassessment: No changes from previously documented assessment. Patient and/or family fu updated on plan of care and expected duration. Pain level reassessed. Patient is alert, oriented x 3, equal unlabored respirations, skin warm/dry/pink. 22:00 Reassessment: Patient and/or family updated on plan of care and expected duration. Pain fu level reassessed. Patient is alert, oriented x 3, equal unlabored respirations, skin warm/dry/pink. 23:09 Reassessment: MD in patient's room. fu Vital Signs: 18:50 BP 157 / 80; Pulse 81; Resp 16; Temp 97.7; Pulse Ox 96% on R/A; Weight 65.77 kg; Height vg1 5 ft. 1 in. (154.94 cm); Pain 5/10; 19:22 BP 148 / 70; Pulse 81; Resp 16; Pulse Ox 99% on R/A; oe 20:00 BP 130 / 66; Pulse 68; Resp 18; Pulse Ox 99% on R/A; fu 21:00 BP 120 / 57; Pulse 65; Resp 23; Pulse Ox 98% on R/A; fu 22:00 BP 140 / 65; Pulse 69; Resp 18; Pulse Ox 97% ; fu 23:00 BP 132 / 73; Pulse 62; Resp 21; Pulse Ox 95% on R/A; fu 18:50 Body Mass Index 27.40 (65.77 kg, 154.94 cm) vg1 ED Course: 18:24 Patient arrived in ED. as 18:52 Triage completed. vg1 18:52 Arm band placed on. vg1 19:08 Halle Carlson MD is Attending Physician. sd2 19:18 Pedro Melendrez, JOSE is Primary Nurse. fu 19:33 Patient has correct armband on for positive identification. Call light in reach. Side fu rails up X 1. Pulse ox on. NIBP on. 19:58 Troponin High Sensitivity Sent. fu 19:58 Magnesium Sent. fu 19:58 CMP Sent. fu 19:58 CBC with Diff Sent. fu 19:58 Lipase Sent. fu 19:58 Inserted saline lock: 20 gauge in right antecubital area, using aseptic technique. fu Blood collected. 21:04 Urine Microscopic Only Sent. fu 21:22 CT Abd/Pelvis - IV Contrast Only In Process Unspecified. EDMS 21:33 XRAY Chest (1 view) In Process Unspecified. EDMS 22:36 Urine Dipstick-Ancillary Sent. fu 23:27 No provider procedures requiring assistance completed. IV discontinued, bleeding fu controlled, Pressure dressing applied. Administered Medications: No medications were administered Medication: 23:27 VIS not applicable for this client. fu Outcome: 23:16 Discharge ordered by . sd2 23:27 Discharged to home ambulatory. fu 23:27 Condition: stable 23:27 Discharge instructions given to patient, Instructed on discharge instructions, follow up and referral plans. Demonstrated understanding of instructions, follow-up care, medications, Prescriptions given X 1. 23:28 Patient left the ED. fu Signatures: Dispatcher [employer] EDMS Lea Vivas Orlando oe Umadhay, Felix, JOSE GARCIA Marissa Ruby RN JOSE [facility] Halle Carlson MD MD sd2
--- NOTE | 2022-08-16 23:18 | EDPHYS ---
Physician Documentation [facility] Name: Erin Robledo Age: 76 yrs Sex: Female : 1945 Arrival Date: 08/16/2022 Time: 18:24 Bed 23 Private MD: ED Physician Halle Carlson HPI: 08/16 19:39 This 76 yrs old Female presents to ER via Ambulatory with complaints of Shoulder Pain, sd2 Flank Pain. 19:39 76-year-old female presents with chief complaint of right lateral rib pain that sd2 initially started a month ago. She reports that the pain has progressively worsened since then and radiates around to her right flank area and now up to her right shoulder blade. She was recently seen for labs to be drawn at the beginning of July at which time she was told that her liver function tests were starting to become elevated. She did have a prior history of fatty liver. She did have a ultrasound performed 3 days ago that showed moderate grade 2 hepatic steatosis. 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 She reports the pain worsened by sitting and driving over the last couple of days. She denies any significant pain with certain range of motion or movements or eating or drinking. She no longer has a gallbladder.. Historical: - Allergies: 18:52 No Known Allergies; vg1 - Home Meds: 18:52 Synthroid 75 mcg Oral tab 1 tab once daily [Active]; candesartan oral [Active]; Januvia vg1 oral [Active]; - PMHx: 18:52 Anemia; Diabetes - NIDDM; High Cholesterol; Hypertension; Hypothyroidism; TIA; vg1 - PSHx: 18:52 section; Cholecystectomy; vg1 - Immunization history:: Client reports having NOT received the Covid vaccine. - Social history:: Smoking status: Patient denies any tobacco usage or history of. ROS: 19:39 Constitutional: Negative for fever, chills, and weight loss, Eyes: Negative for injury, sd2 pain, redness, and discharge, Cardiovascular: Negative for chest pain, palpitations, and edema, Respiratory: Negative for shortness of breath, cough, wheezing. Abdomen/GI: Negative for abdominal pain, nausea, vomiting, diarrhea. Positive for flank pain. : Negative for dysuria, urinary frequency, hesitancy, urgency and hematuria. MS/Extremity: Negative for injury and deformity, Positive for R shoulder pain Skin: Negative for injury, rash, and discoloration, Neuro: Negative for headache, numbness and tingling. Exam: 19:39 Constitutional: This is a well developed, well nourished patient who is awake, alert, sd2 and in no acute distress. Head/Face: Normocephalic, atraumatic. Eyes: EOMI, normal conjunctiva bilaterally Chest/axilla: Normal chest wall appearance and motion. Nontender with no deformity. Cardiovascular: Regular rate and rhythm with a normal S1 and S2. No gallops, murmurs, or rubs. 2+ distal pulses. Respiratory: Lungs have equal breath sounds bilaterally, clear to auscultation and percussion. No rales, rhonchi or wheezes noted. No increased work of breathing, no retractions or nasal flaring. Abdomen/GI: Soft, non-tender, with normal bowel sounds. No guarding or rebound. No evidence of tenderness throughout. Back: No spinal tenderness. No costovertebral tenderness. Full range of motion. Skin: Warm, dry with normal turgor. Normal color with no rashes, no lesions, and no evidence of cellulitis. MS/ Extremity: Pulses equal, no cyanosis. Neurovascular intact. Full, normal range of motion. Ambulatory without difficulty. Psych: Awake, alert, with orientation to person, place and time. Behavior, mood, and affect are within normal limits. 21:21 ECG was reviewed by the Attending Physician. NSR, rate 63, no STEMI criteria, 1st sd2 degree AV block Vital Signs: 18:50 BP 157 / 80; Pulse 81; Resp 16; Temp 97.7; Pulse Ox 96% on R/A; Weight 65.77 kg; Height vg1 5 ft. 1 in. (154.94 cm); Pain 5/10; 19:22 BP 148 / 70; Pulse 81; Resp 16; Pulse Ox 99% on R/A; oe 20:00 BP 130 / 66; Pulse 68; Resp 18; Pulse Ox 99% on R/A; fu 21:00 BP 120 / 57; Pulse 65; Resp 23; Pulse Ox 98% on R/A; fu 22:00 BP 140 / 65; Pulse 69; Resp 18; Pulse Ox 97% ; fu 23:00 BP 132 / 73; Pulse 62; Resp 21; Pulse Ox 95% on R/A; fu 18:50 Body Mass Index 27.40 (65.77 kg, 154.94 cm) vg1 MDM: 19:08 Patient medically screened. sd2 19:39 Differential diagnosis: Gastritis, cholecystitis, pancreatitis, SBO, diverticulitis, sd2 kidney stone, appendicitis, UTI, dehydration, electrolyte abnormality among others. Data reviewed: vital signs, nurses notes. 19:41 Data reviewed: diagnostic data from outside facility, US Abdomen, prior CT scan from 1999 and labs from early July. 23:14 Data reviewed: lab test result(s), EKG, radiologic studies. Counseling: I had a detailed discussion with the patient and/or guardian regarding: the historical points, exam findings, and any diagnostic results supporting the discharge/admit diagnosis, lab results, radiology results, the need for outpatient follow up, to return to the emergency department if symptoms worsen or persist or if there are any questions or concerns that arise at home. ED course: Labs and imaging reviewed. Labs are grossly within normal clinical limits aside from lipase which is mildly elevated. The patient however does not have any epigastric pain or vomiting that would be consistent with his clinical picture and there are no signs of pancreatitis on her CT scan. A lipoma is still present and could be the source of her pain due to the structural placement of it. The patient was advised to try taking anti-inflammatory such as naproxen at home to see if it improves her pain and follow-up with her primary care provider. She is comfortable with plan for discharge and outpatient follow-up at this time and verbalizes understanding of strict return precautions.. 08/16 19:36 Order name: CBC with Diff; Complete Time: 20:36 08/16 19:36 Order name: CMP; Complete Time: 20:36 08/16 19:36 Order name: Magnesium; Complete Time: 20:36 08/16 19:36 Order name: Troponin High Sensitivity; Complete Time: 20:36 08/16 19:36 Order name: BNP; Complete Time: 20:36 08/16 19:36 Order name: Lipase; Complete Time: 20:36 08/16 19:36 Order name: EKG - Nurse/Tech; Complete Time: 20:45 sd2 08/16 19:36 Order name: XRAY Chest (1 view); Complete Time: 21:51 sd2 08/16 19:36 Order name: Urine Dipstick-Ancillary (obtain specimen); Complete Time: 21:04 sd2 08/16 19:36 Order name: Urine Microscopic Only; Complete Time: 21:51 sd2 08/16 19:36 Order name: CT Abd/Pelvis - IV Contrast Only; Complete Time: 21:51 sd2 08/16 21:04 Order name: Urine Dipstick-Ancillary; Complete Time: 21:19 EDMS 08/16 21:06 Order name: Urine Dipstick-Ancillary EDMS Administered Medications: No medications were administered Disposition Summary: 08/16/22 23:16 Discharge Ordered Location: Home sd2 Problem: an ongoing problem sd2 Symptoms: are unchanged sd2 Condition: Stable sd2 Diagnosis - Right rib pain sd2 - Right flank pain sd2 - Right shoulder blade pain sd2 - Lipoma of right lateral abdominal wall sd2 Followup: sd2 - With: Private Physician - When: 2 - 3 days - Reason: Recheck today's complaints, Continuance of care, Re-evaluation by your physician Discharge Instructions: - Discharge Summary Sheet sd2 - Flank Pain, Adult sd2 - Lipoma sd2 - Lipoma Removal sd2 Forms: - Medication Reconciliation Form sd2 - Thank You Letter sd2 - Antibiotic Education sd2 - Prescription Opioid Use sd2 Prescriptions: - Anaprox DS 550 mg Oral Tablet - take 1 tablet by ORAL route every 12 hours As needed; 20 tablet; Refills: 0, sd2 Product Selection Permitted Signatures: Dispatcher [employer] Marissa Daly, RN RN vg1 Halle Carlson MD MD sd2
[2022-08-17 00:32] VITALS: TEMP 97.7
[2022-08-17 00:52] VITALS: BP 132/73; O2SAT 95
--- NOTE | 2022-08-18 16:30 | EKG ---
Test Date: 2022-08-16 Test Time: 20:31:04 Attendant Sales: BRITTA MEASUREMENT RESULTS: Intervals: Rate: 63 MD: 250 QRSD: 90 QT: 406 QTc: 415 [place]: P: 67 MD: 250 QRS: 33 T: 8 INTERPRETIVE STATEMENTS: Sinus rhythm with 1st degree AV block Otherwise normal ECG Compared to ECG 05/18/2018 02:28:21 Sinus bradycardia no longer present Electronically Signed On 08-18-22 16:28:01 BIOTECHNOLOGIST by Richardson Ferreira
== END 2022-08-16 23:28 | disposition home or self-care (01) ==
LOC: ER 18:21
DX: D17.5 Benign lipomatous neoplasm of intra-abdominal organs (principal); R07.81 Pleurodynia; M25.511 Pain in right shoulder; E11.9 Type 2 diabetes mellitus without complications; I10 Essential (primary) hypertension; E03.9 Hypothyroidism, unspecified
CPT/HCPCS: 93005; 85025; 36415; 83735; 84484; 83690; 80053; 83880; 74177; 71045; 99284; Q9967; 81003; 81015